=== PATIENT | female | born 1930 | race Caucasian/White ===

== ENCOUNTER 2018-09-04 07:36 | Emergency (ER) | payer MEDICARE ==
[~2018-09-04] VITALS: Ht 167.6 cm; Wt 72.6 kg
[~2018-09-04 07:36] MED LIST: AMLO5 PO; ASPI325 PO; ASPI81EC PO; Adult Low Dose81 MG; Adult Low Dose81 MG PO; CEPH500 PO; EZET10-80 PO; FAMO40 PO; FLUSAL2505 IH; Ferrous Sulfat325 M2 PO; MECL25 PO; METO50ER PO; OMEP20ER PO; Prednisone20 MG PO; Ventolin Soln3 ML INH; Vibramycin100 MG PO; Vitamin B Comple1 EA PO; Vitamin D2000 UNIT PO; WARF4 PO; XARELTO15 MG PO
== END 2018-09-04 08:52 | disposition left against medical advice (07) ==
LOC: ER 07:36
DX: Z53.21 Procedure and treatment not carried out due to patient leaving prior to being seen by health care provider (principal)

== ENCOUNTER 2018-09-06 12:42 | Inpatient (IN) | payer MEDICARE ==
[~2018-09-06] VITALS: Ht 167.6 cm; Wt 72.6 kg
[2018-09-06 13:16] LABS: BASOPHILS ABSOLUTE AUTO 0.03 K/mm3 (0.00-0.23); BASOPHILS PERCENT AUTO 0 % (0-2); EOSINOPHILS PERCENT AUTO 1 % (0-6); Hematocrit 39.1 % (33.0-51.0); IMMATURE GRAN ABSOLUTE AUTO 0.05 K/mm3 (0.00-0.10); IMMATURE GRAN PERCENT AUTO 1 % (0-1); LYMPHOCYTES ABSOLUTE AUTO 0.91 K/mm3 (0.84-5.20); LYMPHOCYTES PERCENT AUTO 9 % (21-46); MONOCYTES ABSOLUTE AUTO 1.09 K/mm3 (0.16-1.47); MONOCYTES PERCENT AUTO 11 % (4-13); Mean Corpuscular HGB 29.4 pg (26.0-34.0); Mean Corpuscular HGB Conc 30.7 g/dL (31.5-36.5); Mean Corpuscular Volume 96 fL (80-100); NEUTROPHILS ABSOLUTE AUTO 8.15 K/mm3 (1.96-9.15); NEUTROPHILS PERCENT AUTO 79 % (41-73); Platelet Count 241 K/mm3 (150-400); RDW Coefficient Variation 14.2 % (11.7-14.2); Red Blood Cell Count 4.08 M/mm3 (3.80-5.20); White Blood Cell Count 10.33 K/mm3 (4.00-11.30)
[2018-09-06 13:30] LABS: Alanine Aminotransfer (ALT/SGP 36 U/L (12-78); Albumin, Blood 3.6 g/dL (3.4-5.0); Albumin/Globulin Ratio 1.2 (0.8-1.8); Alk Phos 96 U/L (50-136); Anion Gap 4 mmol/L (6-16); Aspartate Aminotrans (AST/SGOT 25 U/L (12-37); Bilirubin, Total 0.8 mg/dL (0.1-1.0); Blood Urea Nitrogen 28 mg/dL (8-24); Bun/Creatinine Ratio 28.6 (12.0-20.0); CO2, Blood 32 mmol/L (21-32); Calcium, Blood 8.8 mg/dL (8.5-10.1); Chloride, Blood 105 mmol/L (98-108); Creatinine, Blood 0.98 mg/dL (0.40-1.00); Globulin, Blood 3.1 g/dL (2.2-4.0); Glomerular Filtration Rate 57 (60-); Glucose, Blood 129 mg/dL (70-99); Potassium, Blood 3.6 mmol/L (3.5-5.5); Sodium, Blood 141 mmol/L (136-145); Total Protein, Blood 6.7 g/dL (6.4-8.2); Troponin I <0.015 ng/mL (0.000-0.040)
[2018-09-06] MEDS ORDERED: WARF5 PO (14:59)
[2018-09-06] MEDS ORDERED: POTCHL20ER PO (14:59)
[2018-09-06] MEDS ORDERED: Furosemide20 MG PO (15:10)
[2018-09-06] MEDS ORDERED: Bystolic10 MG PO (15:11)
[2018-09-06] MEDS ORDERED: WARF2.5 PO (15:25)
[2018-09-06] MEDS ORDERED: AMLO5 PO (15:29)
[2018-09-06] MEDS ORDERED: ATOR40TA PO (15:45)
[2018-09-06] MEDS ORDERED: LOSARTAN-HCTZ1 EACH PO (15:47)
[2018-09-06] MEDS ORDERED: ALBU90OI61 INH (15:50)
--- NOTE | 2018-09-06 16:13 | NUR ---
RECIEVED REPORT FROM DHARMESH IN ER.
[2018-09-06 17:26] LABS: International Normalized Ratio 3.07; Prothrombin Time Results 29.4 Sec (9.7-11.5)
--- NOTE | 2018-09-06 18:19 | NUR ---
SHIFT SUMMARY. PT ADMISSION TO MEDICAL FLOOR VIA GURNEY TRANSPORT FROM ER. PT SELF TRANFERED TO BED WITHOUT ISSUE. ON 2L O2 NC. DYSPNEA WITH EXERTION. IV LASIX GIVEN. PT REPORTS TOLERABLE PAIN TO RLE SECONDARY TO WOUND. NO N/V. GOOD PO INTAKE.
--- NOTE | 2018-09-06 18:34 | NUR ---
Pt. gave permission for nursing project coordinator to perform head to toe assessment and to provide care.
[2018-09-07 04:49] LABS: BASOPHILS ABSOLUTE AUTO 0.03 K/mm3 (0.00-0.23); BASOPHILS PERCENT AUTO 0 % (0-2); EOSINOPHILS ABSOLUTE AUTO 0.13 K/mm3 (0.00-0.68); EOSINOPHILS PERCENT AUTO 2 % (0-6); Hematocrit 34.5 % (33.0-51.0); Hemoglobin 10.7 g/dL (11.5-16.0); IMMATURE GRAN ABSOLUTE AUTO 0.04 K/mm3 (0.00-0.10); IMMATURE GRAN PERCENT AUTO 1 % (0-1); LYMPHOCYTES ABSOLUTE AUTO 1.02 K/mm3 (0.84-5.20); LYMPHOCYTES PERCENT AUTO 15 % (21-46); MONOCYTES ABSOLUTE AUTO 1.26 K/mm3 (0.16-1.47); MONOCYTES PERCENT AUTO 18 % (4-13); Mean Corpuscular Volume 94 fL (80-100); Mean Platelet Volume 9.6 fL (9.1-12.4); NEUTROPHILS ABSOLUTE AUTO 4.55 K/mm3 (1.96-9.15); NEUTROPHILS PERCENT AUTO 65 % (41-73); Platelet Count 199 K/mm3 (150-400); RDW Coefficient Variation 14.1 % (11.7-14.2); RDW Standard Deviation 48.6 fL (35.1-46.3); Red Blood Cell Count 3.69 M/mm3 (3.80-5.20); White Blood Cell Count 7.03 K/mm3 (4.00-11.30)
[2018-09-07 05:06] LABS: International Normalized Ratio 2.98; Prothrombin Time Results 28.6 Sec (9.7-11.5)
[2018-09-07 05:07] LABS: Alanine Aminotransfer (ALT/SGP 28 U/L (12-78); Albumin/Globulin Ratio 1.1 (0.8-1.8); Alk Phos 77 U/L (50-136); Anion Gap 5 mmol/L (6-16); Aspartate Aminotrans (AST/SGOT 17 U/L (12-37); Blood Urea Nitrogen 23 mg/dL (8-24); Bun/Creatinine Ratio 25.1 (12.0-20.0); CO2, Blood 33 mmol/L (21-32); Calcium, Blood 8.4 mg/dL (8.5-10.1); Chloride, Blood 104 mmol/L (98-108); Creatinine, Blood 0.92 mg/dL (0.40-1.00); Globulin, Blood 2.7 g/dL (2.2-4.0); Glomerular Filtration Rate >60 (60-); Glucose, Blood 100 mg/dL (70-99); Potassium, Blood 3.6 mmol/L (3.5-5.5); Sodium, Blood 142 mmol/L (136-145); Total Protein, Blood 5.7 g/dL (6.4-8.2)
--- NOTE | 2018-09-07 07:22 | NUR ---
a+o, sob but rt was able to resolve with a breathing treatment, sitting up in bed with o2 on, call light in reach saline locked, walking rounds completed with day staff
--- NOTE | 2018-09-07 19:22 | NUR ---
SHIFT SUMMARY PATIENT A&O X4, INDEP TO BSC. C/O PAIN TO RIGHT LEG THIS SHIFT, RN MEDICATED PER E JUL. O2 @ 2 L NC, PER DR. ELLER ORDERS RN REMOVED O2 AND MONITORED. SATS HAVE REMAINED >90% ON RA. GAUZE WRAP TO ABRASION ON RIGHT STILL. NO ACUTE CHANGES THIS SHIFT. REPORT GIVEN TO ONCOMING RN.
[2018-09-08 05:04] LABS: BASOPHILS ABSOLUTE AUTO 0.02 K/mm3 (0.00-0.23); BASOPHILS PERCENT AUTO 0 % (0-2); EOSINOPHILS ABSOLUTE AUTO 0.17 K/mm3 (0.00-0.68); EOSINOPHILS PERCENT AUTO 3 % (0-6); Hematocrit 38.1 % (33.0-51.0); Hemoglobin 11.8 g/dL (11.5-16.0); IMMATURE GRAN ABSOLUTE AUTO 0.02 K/mm3 (0.00-0.10); IMMATURE GRAN PERCENT AUTO 0 % (0-1); LYMPHOCYTES ABSOLUTE AUTO 0.79 K/mm3 (0.84-5.20); LYMPHOCYTES PERCENT AUTO 16 % (21-46); MONOCYTES ABSOLUTE AUTO 0.96 K/mm3 (0.16-1.47); MONOCYTES PERCENT AUTO 19 % (4-13); Mean Corpuscular Volume 94 fL (80-100); Mean Platelet Volume 9.8 fL (9.1-12.4); NEUTROPHILS ABSOLUTE AUTO 3.11 K/mm3 (1.96-9.15); NEUTROPHILS PERCENT AUTO 61 % (41-73); Platelet Count 212 K/mm3 (150-400); RDW Coefficient Variation 14.1 % (11.7-14.2); RDW Standard Deviation 47.4 fL (35.1-46.3); Red Blood Cell Count 4.07 M/mm3 (3.80-5.20); White Blood Cell Count 5.07 K/mm3 (4.00-11.30)
--- NOTE | 2018-09-08 05:11 | NUR ---
SHIFT SUMMARY PT REPORTS SHE SLEPT WELL T/O NIGHT. AOX4. DENIES ANY PAIN, NAUSEA OR SOB @REST. SPO2 WAS @88-89% ON RA LAST NIGHT SO PT WAS PUT BACK ON 2L O2 VIA NC, SPO2 THIS AM @92% W/EVEN & UNLABOURED RESPIRATIONS. TELE IN PLACE, PT IS A. FIB W/HR 87 PER TELE FIXED INCOME TRADING VICE PRESIDENT. NO OTHER ACUTE CHANGES. INDEPENDENT TO BSC. CALL LIGHT IN REACH & I WILL CONTINUE TO MONITOR.
[2018-09-08 05:21] LABS: International Normalized Ratio 3.28; Prothrombin Time Results 31.2 Sec (9.7-11.5)
[2018-09-08 05:32] LABS: Bilirubin, Total 0.9 mg/dL (0.1-1.0); Bun/Creatinine Ratio 29.9 (12.0-20.0); Calcium, Blood 8.5 mg/dL (8.5-10.1); Creatinine, Blood 1.07 mg/dL (0.40-1.00); Globulin, Blood 2.9 g/dL (2.2-4.0); Magnesium, Blood 2.1 mg/dL (1.6-2.4); Potassium, Blood 3.7 mmol/L (3.5-5.5); Total Protein, Blood 5.9 g/dL (6.4-8.2)
--- NOTE | 2018-09-08 18:50 | NUR ---
SHIFT SUMMARY PATIENT A&O X4, INDEP TO BSC. DENIES ANY SOB OR PAIN. TELE AFIB @ 120. RUNNING BETWEEN ONE TEENS AND 130S THIS SHIFT. DR. ELLER AWARE. HOME O2 EVAL DONE TODAY. NO OTHER ACUTE CHANGES. BED IN LOWEST POSITION, CALL LIGHT WITHIN REACH.
[2018-09-09 05:17] LABS: BASOPHILS ABSOLUTE AUTO 0.03 K/mm3 (0.00-0.23); BASOPHILS PERCENT AUTO 0 % (0-2); EOSINOPHILS PERCENT AUTO 2 % (0-6); IMMATURE GRAN ABSOLUTE AUTO 0.06 K/mm3 (0.00-0.10); IMMATURE GRAN PERCENT AUTO 1 % (0-1); LYMPHOCYTES ABSOLUTE AUTO 0.94 K/mm3 (0.84-5.20); LYMPHOCYTES PERCENT AUTO 9 % (21-46); MONOCYTES ABSOLUTE AUTO 1.61 K/mm3 (0.16-1.47); MONOCYTES PERCENT AUTO 15 % (4-13); Mean Corpuscular HGB Conc 31.6 g/dL (31.5-36.5); Mean Corpuscular Volume 92 fL (80-100); NEUTROPHILS ABSOLUTE AUTO 8.24 K/mm3 (1.96-9.15); NEUTROPHILS PERCENT AUTO 74 % (41-73); Platelet Count 243 K/mm3 (150-400); RDW Standard Deviation 46.9 fL (35.1-46.3); Red Blood Cell Count 4.14 M/mm3 (3.80-5.20); White Blood Cell Count 11.08 K/mm3 (4.00-11.30)
[2018-09-09 05:32] LABS: International Normalized Ratio 2.5; Prothrombin Time Results 24.4 Sec (9.7-11.5)
[2018-09-09 05:41] LABS: Anion Gap 6 mmol/L (6-16); Blood Urea Nitrogen 27 mg/dL (8-24); Bun/Creatinine Ratio 31.1 (12.0-20.0); CO2, Blood 29 mmol/L (21-32); Chloride, Blood 105 mmol/L (98-108); Creatinine, Blood 0.87 mg/dL (0.40-1.00); Glomerular Filtration Rate >60 (60-); Glucose, Blood 113 mg/dL (70-99); Potassium, Blood 3.9 mmol/L (3.5-5.5); Sodium, Blood 140 mmol/L (136-145)
--- NOTE | 2018-09-09 06:49 | NUR ---
SHIFT SUMMARY PT HAS BEEN AWAKE ON/OFF T/O NIGHT & REPORTS SHE DID NOT SLEEP @ALL, HOWEVER WHEN I CHECKED ON PT MULTIPLE TIMES T/O NIGHT SHE WAS RESTING. NO ACUTE CHANGES THIS SHIFT. AOX4. DENIES PAIN OR NAUSEA OR SOB. PT HAS BEEN ON RA T/O NIGHT W/SPO2 >90%. REPORTS SHE FEELS HER BREATHING IS BETTER. PER TELE SHUTTLE FIXER PT HAS BEEN IN A. FIB W/ HR 110-120. INDEPENDENT TO BSC. HAS TOLERATED BEING ON 1500ML FLUID RESTRICTION. CALL LIGHT IS IN REACH.
[2018-09-09] MEDS ORDERED: METO50ER PO (17:36)
[2018-09-09] MEDS ORDERED: LOSA50 PO (17:41)
[2018-09-09] MEDS ORDERED: SPIR25 PO (17:41)
--- NOTE | 2018-09-09 19:23 | NUR ---
DISCHARGE SUMMARY PATIENT A&O X4, INDEPENDENT TO BSC. RA SATS >90%. TELE LOW 100S -120S THIS SHIFT. DENIES ANY PAIN. SOB W/EXERTION. BREATHING TREATMENTS PER RT PRN. DISCHARGE INSTRUCTIONS REVIEWED WITH PATIENT. PATIENT GAVE VERBAL UNDERSTANDING. IV D/C, WNL. LICENSED WEIGHER ESCORTED PATIENT OUT BY WHEELCHAIR, ALL BELONGINGS IN HAND.
== END 2018-09-09 18:43 | disposition home or self-care (01) | DRG 291 ==
LOC: ER 12:42 → MEDS 15:12 → ENPENDDIS 09-09 16:25 → MEDS 09-09 18:43
PROVIDERS: Emergency Medicine; Hospitalist; ADMIT Student in an Organized Health Care Education/Training Program
DX: I13.0 Hypertensive heart and chronic kidney disease with heart failure and stage 1 through stage 4 chronic kidney disease, or unspecified chronic kidney disease (principal); I50.33 Acute on chronic diastolic (congestive) heart failure; N18.3 Chronic kidney disease, stage 3 (moderate); I25.10 Atherosclerotic heart disease of native coronary artery without angina pectoris; J44.9 Chronic obstructive pulmonary disease, unspecified; R73.03 Prediabetes; Z95.5 Presence of coronary angioplasty implant and graft; Z79.01 Long term (current) use of anticoagulants; I35.0 Nonrheumatic aortic (valve) stenosis; Z87.891 Personal history of nicotine dependence; I44.0 Atrioventricular block, first degree; I48.2 Chronic atrial fibrillation
CPT/HCPCS: 36415; 71046; 80048; 80053; 83735; 83880; 84145; 84484; 85025; 85610; 85730; 93005; 93010; 94640; 94760; 94761; 99285-25; J1940

== ENCOUNTER 2018-10-06 11:57 | Day surgery (SDC) | payer MEDICARE ==
[~2018-10-06 11:57] MED LIST changes: +ALBU90OI61 INH; +ATOR40TA PO; +Bystolic10 MG PO; +Furosemide20 MG PO; +LOSA50 PO; +LOSARTAN-HCTZ1 EACH PO; +POTCHL20ER PO; +SPIR25 PO; +WARF2.5 PO; +WARF5 PO
== END 2018-10-06 22:46 | disposition home or self-care (01) ==
LOC: WOUND 11:57
DX: L97.812 Non-pressure chronic ulcer of other part of right lower leg with fat layer exposed (principal); I10 Essential (primary) hypertension; I25.10 Atherosclerotic heart disease of native coronary artery without angina pectoris; I48.91 Unspecified atrial fibrillation; J44.9 Chronic obstructive pulmonary disease, unspecified; E78.5 Hyperlipidemia, unspecified; D64.9 Anemia, unspecified; Z87.891 Personal history of nicotine dependence
CPT/HCPCS: G0463

== ENCOUNTER 2018-10-13 00:57 | Day surgery (SDC) | payer MEDICARE | END 2018-10-13 23:20 | disposition home or self-care (01) | LOC: WOUND 00:57 | DX: L97.813 Non-pressure chronic ulcer of other part of right lower leg with necrosis of muscle (principal); I10 Essential (primary) hypertension; E78.5 Hyperlipidemia, unspecified; J44.9 Chronic obstructive pulmonary disease, unspecified; I25.10 Atherosclerotic heart disease of native coronary artery without angina pectoris ==

== ENCOUNTER 2018-10-20 00:25 | Day surgery (SDC) | payer MEDICARE | END 2018-10-20 23:13 | disposition home or self-care (01) | LOC: WOUND 00:25 | DX: L97.813 Non-pressure chronic ulcer of other part of right lower leg with necrosis of muscle (principal); I10 Essential (primary) hypertension; J44.9 Chronic obstructive pulmonary disease, unspecified; I25.10 Atherosclerotic heart disease of native coronary artery without angina pectoris ==

== ENCOUNTER 2018-10-24 07:44 | Day surgery (SDC) | payer MEDICARE ==
[~2018-10-24] VITALS: Wt 70.0 kg
[~2018-10-24 07:44] MED LIST changes: +LOSA25 PO; -LOSA50 PO
--- NOTE | 2018-10-24 09:01 | NUR ---
0818 Ambulatory in Day SurgeryLungs clear T/O to Auscultation. DIM BASES BILAT Patient confirms NPO status and agrees with scheduled surgery. History, Chart, Medications and Allergies reviewed before start of procedure.Pre-Op teaching done. Pt verbalizes understanding.
--- NOTE | 2018-10-24 10:50 | NUR ---
Patient up to Ambulate independently. Gait steady. Discharge instructions reviewed with patient. Patient verbalizes understanding. Copy given to patient to take home. Discussed wound vac care to patient and patients son. Patient States Post-Procedure ride home has been arranged. Discharged via wheelchair to private car for ride home.
== END 2018-10-24 10:49 | disposition home or self-care (01) ==
LOC: ORSCMMR 07:44
PROVIDERS: Surgery
PROC: 0JBN0ZZ Excision of Right Lower Leg Subcutaneous Tissue and Fascia, Open Approach (ICD-10-PCS; principal; 2018-10-24 09:30)
DX: L97.919 Non-pressure chronic ulcer of unspecified part of right lower leg with unspecified severity (principal); I34.0 Nonrheumatic mitral (valve) insufficiency; I35.0 Nonrheumatic aortic (valve) stenosis; E78.5 Hyperlipidemia, unspecified; I25.10 Atherosclerotic heart disease of native coronary artery without angina pectoris; I10 Essential (primary) hypertension; J44.9 Chronic obstructive pulmonary disease, unspecified; Z79.82 Long term (current) use of aspirin; Z79.899 Other long term (current) drug therapy
CPT/HCPCS: 36415; 85610; 93005; 93010; 99283-25; A9270-GY; J0690; J1100; J2370; J2405; J2704; J3010; J7120

== ENCOUNTER 2018-10-24 17:58 | Emergency (ER) | payer MEDICARE ==
[~2018-10-24] VITALS: Ht 167.6 cm; Wt 69.8 kg
[~2018-10-24 17:58] MED LIST changes: -LOSA25 PO; +LOSA50 PO
[2018-10-24 18:54] LABS: International Normalized Ratio 1.23; Prothrombin Time Results 12.8 Sec (9.7-11.5)
== END 2018-10-24 20:00 | disposition home or self-care (01) ==
LOC: ER 17:58
PROVIDERS: Physician Assistant
DX: L97.919 Non-pressure chronic ulcer of unspecified part of right lower leg with unspecified severity (principal); I48.91 Unspecified atrial fibrillation; Z79.899 Other long term (current) drug therapy; Z79.82 Long term (current) use of aspirin; Z79.01 Long term (current) use of anticoagulants; J44.9 Chronic obstructive pulmonary disease, unspecified; I10 Essential (primary) hypertension; Z87.891 Personal history of nicotine dependence
CPT/HCPCS: 36415; 85610; 93005; 93010; 99283-25

== ENCOUNTER 2018-10-25 11:08 | Day surgery (SDC) | payer MEDICARE | END 2018-10-25 23:00 | disposition home or self-care (01) | LOC: WOUND 11:08 | DX: L97.813 Non-pressure chronic ulcer of other part of right lower leg with necrosis of muscle (principal); I10 Essential (primary) hypertension; I25.10 Atherosclerotic heart disease of native coronary artery without angina pectoris; I48.0 Paroxysmal atrial fibrillation; J44.9 Chronic obstructive pulmonary disease, unspecified; D64.9 Anemia, unspecified; E78.5 Hyperlipidemia, unspecified ==

== ENCOUNTER 2018-10-26 12:25 | Day surgery (SDC) | payer MEDICARE, OTHER ==
[~2018-10-26 12:25] MED LIST changes: +LOSA25 PO; -LOSA50 PO
== END 2018-10-26 22:53 | disposition home or self-care (01) ==
LOC: WOUND 12:25
DX: L97.813 Non-pressure chronic ulcer of other part of right lower leg with necrosis of muscle (principal); I10 Essential (primary) hypertension; J44.9 Chronic obstructive pulmonary disease, unspecified; E78.5 Hyperlipidemia, unspecified; I25.10 Atherosclerotic heart disease of native coronary artery without angina pectoris

== ENCOUNTER 2018-10-31 11:29 | Day surgery (SDC) | payer MEDICARE | END 2018-10-31 22:41 | disposition home or self-care (01) | LOC: WOUND 11:29 | DX: L97.314 Non-pressure chronic ulcer of right ankle with necrosis of bone (principal); I10 Essential (primary) hypertension; I25.10 Atherosclerotic heart disease of native coronary artery without angina pectoris; J44.9 Chronic obstructive pulmonary disease, unspecified; D64.9 Anemia, unspecified | CPT/HCPCS: G0463 ==

== ENCOUNTER 2018-11-02 12:30 | Day surgery (SDC) | payer MEDICARE, SELFPAY | END 2018-11-02 23:10 | disposition home or self-care (01) | LOC: WOUND 12:30 | DX: L97.813 Non-pressure chronic ulcer of other part of right lower leg with necrosis of muscle (principal); I10 Essential (primary) hypertension; I25.10 Atherosclerotic heart disease of native coronary artery without angina pectoris; J44.9 Chronic obstructive pulmonary disease, unspecified; I48.0 Paroxysmal atrial fibrillation; E78.5 Hyperlipidemia, unspecified; D64.9 Anemia, unspecified ==

== ENCOUNTER 2018-11-04 15:03 | Day surgery (SDC) | payer MEDICARE | END 2018-11-04 23:05 | disposition home or self-care (01) | LOC: WOUND 15:03 | DX: L97.813 Non-pressure chronic ulcer of other part of right lower leg with necrosis of muscle (principal); I10 Essential (primary) hypertension; I48.0 Paroxysmal atrial fibrillation; I25.10 Atherosclerotic heart disease of native coronary artery without angina pectoris; J44.9 Chronic obstructive pulmonary disease, unspecified; E78.5 Hyperlipidemia, unspecified; D64.9 Anemia, unspecified | CPT/HCPCS: G0463 ==

== ENCOUNTER 2018-11-11 07:48 | Day surgery (SDC) | payer MEDICARE | END 2018-11-11 23:23 | disposition home or self-care (01) | LOC: WOUND 07:48 | DX: L97.813 Non-pressure chronic ulcer of other part of right lower leg with necrosis of muscle (principal); I10 Essential (primary) hypertension; J44.9 Chronic obstructive pulmonary disease, unspecified; E78.5 Hyperlipidemia, unspecified; I25.10 Atherosclerotic heart disease of native coronary artery without angina pectoris | CPT/HCPCS: G0463 ==

== ENCOUNTER 2018-11-14 11:05 | Day surgery (SDC) | payer MEDICARE | END 2018-11-14 22:40 | disposition home or self-care (01) | LOC: WOUND 11:05 | DX: L97.813 Non-pressure chronic ulcer of other part of right lower leg with necrosis of muscle (principal); I10 Essential (primary) hypertension; J44.9 Chronic obstructive pulmonary disease, unspecified; E78.5 Hyperlipidemia, unspecified; I25.10 Atherosclerotic heart disease of native coronary artery without angina pectoris ==

== ENCOUNTER 2018-11-18 16:10 | Inpatient (IN) | payer MEDICARE, OTHER ==
[~2018-11-18] VITALS: Ht 167.6 cm; Wt 67.0 kg
[2018-11-18 16:42] LABS: BASOPHILS ABSOLUTE AUTO 0.02 K/mm3 (0.00-0.23); BASOPHILS PERCENT AUTO 1 % (0-2); EOSINOPHILS ABSOLUTE AUTO 0.06 K/mm3 (0.00-0.68); EOSINOPHILS PERCENT AUTO 1 % (0-6); Hematocrit 46.1 % (33.0-51.0); Hemoglobin 14.6 g/dL (11.5-16.0); IMMATURE GRAN ABSOLUTE AUTO 0.02 K/mm3 (0.00-0.10); IMMATURE GRAN PERCENT AUTO 1 % (0-1); LYMPHOCYTES ABSOLUTE AUTO 0.92 K/mm3 (0.84-5.20); LYMPHOCYTES PERCENT AUTO 22 % (21-46); MONOCYTES ABSOLUTE AUTO 0.91 K/mm3 (0.16-1.47); MONOCYTES PERCENT AUTO 22 % (4-13); Mean Corpuscular HGB Conc 31.7 g/dL (31.5-36.5); Mean Corpuscular Volume 92 fL (80-100); Mean Platelet Volume 9.9 fL (9.1-12.4); NEUTROPHILS ABSOLUTE AUTO 2.31 K/mm3 (1.96-9.15); NEUTROPHILS PERCENT AUTO 54 % (41-73); Platelet Count 276 K/mm3 (150-400); RDW Coefficient Variation 14.4 % (11.7-14.2); RDW Standard Deviation 48.2 fL (35.1-46.3); Red Blood Cell Count 5.04 M/mm3 (3.80-5.20); White Blood Cell Count 4.24 K/mm3 (4.00-11.30)
[2018-11-18 16:54] LABS: Albumin, Blood 3.6 g/dL (3.4-5.0); Albumin/Globulin Ratio 1.1 (0.8-1.8); Bilirubin, Total 0.6 mg/dL (0.1-1.0); Bun/Creatinine Ratio 34.2 (12.0-20.0); Calcium, Blood 8.7 mg/dL (8.5-10.1); Creatinine, Blood 1.46 mg/dL (0.40-1.00); Globulin, Blood 3.2 g/dL (2.2-4.0); Potassium, Blood 4.6 mmol/L (3.5-5.5); Total Protein, Blood 6.8 g/dL (6.4-8.2)
[2018-11-18] MEDS ORDERED: ATOR40TA PO (17:53)
[2018-11-18 19:24] LABS: Hematocrit 44.8 % (33.0-51.0); Hemoglobin 14.4 g/dL (11.5-16.0)
[2018-11-19 01:55] LABS: Hematocrit 44.3 % (33.0-51.0); Hemoglobin 14.1 g/dL (11.5-16.0)
[2018-11-19 01:59] LABS: BASOPHILS ABSOLUTE AUTO 0.01 K/mm3 (0.00-0.23); BASOPHILS PERCENT AUTO 0 % (0-2); EOSINOPHILS ABSOLUTE AUTO 0.11 K/mm3 (0.00-0.68); EOSINOPHILS PERCENT AUTO 3 % (0-6); Hematocrit 44.2 % (33.0-51.0); Hemoglobin 14.1 g/dL (11.5-16.0); IMMATURE GRAN ABSOLUTE AUTO 0.01 K/mm3 (0.00-0.10); IMMATURE GRAN PERCENT AUTO 0 % (0-1); LYMPHOCYTES ABSOLUTE AUTO 1.35 K/mm3 (0.84-5.20); LYMPHOCYTES PERCENT AUTO 35 % (21-46); MONOCYTES ABSOLUTE AUTO 0.81 K/mm3 (0.16-1.47); MONOCYTES PERCENT AUTO 21 % (4-13); Mean Corpuscular HGB Conc 31.9 g/dL (31.5-36.5); Mean Corpuscular Volume 91 fL (80-100); Mean Platelet Volume 9.6 fL (9.1-12.4); NEUTROPHILS ABSOLUTE AUTO 1.59 K/mm3 (1.96-9.15); NEUTROPHILS PERCENT AUTO 41 % (41-73); Platelet Count 197 K/mm3 (150-400); RDW Coefficient Variation 14.1 % (11.7-14.2); RDW Standard Deviation 47.5 fL (35.1-46.3); Red Blood Cell Count 4.86 M/mm3 (3.80-5.20); White Blood Cell Count 3.88 K/mm3 (4.00-11.30)
[2018-11-19 02:10] LABS: International Normalized Ratio 1.56; Prothrombin Time Results 15.9 Sec (9.7-11.5)
[2018-11-19 02:13] LABS: Bun/Creatinine Ratio 39.1 (12.0-20.0); Calcium, Blood 8.4 mg/dL (8.5-10.1); Creatinine, Blood 1.1 mg/dL (0.40-1.00)
[2018-11-19 07:31] LABS: Hematocrit 43.8 % (33.0-51.0); Hemoglobin 14.1 g/dL (11.5-16.0)
--- NOTE | 2018-11-19 07:40 | NUR ---
ADMIT NOTE/SHIFT SUMMARY PATIENT ADMITTED EARLIER LAST NIGHT. PATIENT VERY PLEASENT AND COOPERATIVE LAST NIGHT. PATIENT ABLE TO TRANSFER SELF FROM THE GURNEY TO THE BED WITH SBA. PATIENT REPROTS SHE HAS BEEN FEELING DIZZY THE PAST COUPLE OF DAYS AND SHE STATES SHE HAD A "BLACK" BM ON 11/17. PATIENT APPARED TO SLEEP WELL LAST NIGHT. PATIENT STATED, "I SLEPT SO WELL LAST NIGHT!" IV FLUIDS RUNNING PER ORDERS. PATIENT CURRENTLY RESTING IN BED. REPORT GIVEN TO ONCOMING RN.
--- NOTE | 2018-11-19 10:57 | NUR ---
DR PAT AT BEDSIDE, NEW ORDERS FOR REGULAR DIET AND CONTINUE TO MONITOR. IF NO CHANGES OK TO SEND HOME.
--- NOTE | 2018-11-19 11:24 | NUR ---
NOTIFIED DR AGUSTIN OF DR PAT VISIT AND PLANS VIA TELE PHONE, NEW ORDERS FOR TRANSFER TO MEDICAL FLOOR NO TELE AND CBC IN AM. WILL CONTINUE TO MONITOR.
--- NOTE | 2018-11-19 13:45 | NUR ---
TRANSFER NOTE ASSUMED CARE OF PATIENT THIS AM AT APPROX 0700. PT A&Ox4. CALM AND COOPERTIVE WITH CARE. PT RESTING IN BED, UP TO BATHROOM WITH SBA. PT DENIES SOB, PAIN, DIZZINESS AND LIGHTHEADED NESS AND N/V. PT NPO THIS AM, STARTED ON REGULAR TRAY FOR LUNCH, APPEARS TO TOLERATING. NO BM NOTED SINCE ADMISSION. TELE IN AFIB. BREAHTING EVEN AND UNLABORED. WOUND VAC TO RLE DRESSING C/D/I. VSS. NO OTHER ACUTE CHANGES NOTED DURIING SHIFT. REPORT GIVEN TO GABRIEL HERRERA RN, PT BEING TRANSFERED TO MED ROOM 335.
[2018-11-19 14:01] LABS: Hematocrit 44.8 % (33.0-51.0); Hemoglobin 13.9 g/dL (11.5-16.0)
--- NOTE | 2018-11-19 15:14 | NUR ---
RECEIVED HANDOFF REPORT RECEIVED HANDOFF REPORT FROM PCU NURSE POLLO. 88 YR OLD FEMALE ADMITTED FOR GI BLEED. FULL CODE. REGULAR DIET. PRE-DIABETIC, ACHS CHEMSTICKS. PLAN IS FOR DC TOMORROW IF LABS ARE STABLE. HX: AFIB, COUMADIN THERAPY, RLE ULCER (WOUND VAC ATTACHED ON 10/24/18), HTN, COPD, CAD (3 STENTS), CKD3. A&O X4, ROOM AIR, STANDBY ASSIST, MEDS WHOLE W/WATER. PT TRANSFERED TO MEDICAL FLOOR [facility], ORIENTED TO UNIT @ 1356 HRS.
--- NOTE | 2018-11-19 18:22 | NUR ---
SHIFT SUMMARY PT TRANSFERED FROM PCU TODAY. 88 YR OLD FEMALE ADMITTED FOR GI BLEED. FULL CODE. REGULAR DIET, ACHS, A&O X4. STANDBY ASSIST TO BATHROOM. WAS ON COUMADIN AT HOME AND ADMITTED WITH INR OF 7.3. HX: AFIB, CHF, RIGHT LE ULCER W/WOUND VAC, CAD W/3 STENTS, CKD3.
[2018-11-20 05:04] LABS: BASOPHILS ABSOLUTE AUTO 0.01 K/mm3 (0.00-0.23); BASOPHILS PERCENT AUTO 0 % (0-2); EOSINOPHILS ABSOLUTE AUTO 0.09 K/mm3 (0.00-0.68); EOSINOPHILS PERCENT AUTO 2 % (0-6); Hematocrit 44.3 % (33.0-51.0); Hemoglobin 13.9 g/dL (11.5-16.0); Mean Corpuscular HGB 28.4 pg (26.0-34.0); Mean Corpuscular HGB Conc 31.4 g/dL (31.5-36.5); Mean Corpuscular Volume 91 fL (80-100); Mean Platelet Volume 9.7 fL (9.1-12.4); Platelet Count 201 K/mm3 (150-400); RDW Coefficient Variation 14.3 % (11.7-14.2); RDW Standard Deviation 47.8 fL (35.1-46.3); Red Blood Cell Count 4.89 M/mm3 (3.80-5.20); White Blood Cell Count 4.12 K/mm3 (4.00-11.30)
[2018-11-20 05:07] LABS: IMMATURE GRAN ABSOLUTE AUTO 0.02 K/mm3 (0.00-0.10); IMMATURE GRAN PERCENT AUTO 1 % (0-1); LYMPHOCYTES ABSOLUTE AUTO 1.34 K/mm3 (0.84-5.20); LYMPHOCYTES PERCENT AUTO 33 % (21-46); MONOCYTES ABSOLUTE AUTO 0.69 K/mm3 (0.16-1.47); MONOCYTES PERCENT AUTO 17 % (4-13); NEUTROPHILS ABSOLUTE AUTO 1.97 K/mm3 (1.96-9.15); NEUTROPHILS PERCENT AUTO 48 % (41-73)
--- NOTE | 2018-11-20 06:43 | NUR ---
wound vac draining but complained all night that it was blocked, tried various "solutions" even asked advise of cn, passed information to day staff during bsr, saline locked, room air, blood work down only slightly
[2018-11-20] MEDS ORDERED: Prilosec Otc20 MG PO (10:23)
--- NOTE | 2018-11-20 11:18 | NUR ---
DISCHARGE NOTE IV DC'D WNL. HOSPITAL WOUND VAC DISCONNECTED. HOME WOUND VAC GIVEN BACK TO THE PT. DISCHARGE MEDICATIONS FAXED TO PREFERED PHARMACY. PT PROVIDED WITH HARDCOPY AND VERBAL INSTRUCTIONS FOR DISCHARGE RE: DIAGNOSES, MEDICATIONS, AND FOLLOW UP APPOINTMENTS. PT DRESSED IN PERSONAL CLOTHING, PERSONAL POSSESSIONS GIVEN TO PT. PT HAD NO FURTHER QUESTIONS. FAMILY NOTIFIED OF DISCHARGE. PT ESCORTED OUT VIA WHEELCHAIR TO PERSONAL VEHICLE.
== END 2018-11-20 11:11 | disposition home health service (06) | DRG 378 ==
LOC: ER 16:10 → PCU 17:17 → MEDS 11-19 13:56 → ENPENDDIS 11-20 09:12 → MEDS 11-20 11:11
PROVIDERS: Emergency Medicine; Internal Medicine; ADMIT Internal Medicine
DX: K92.2 Gastrointestinal hemorrhage, unspecified (principal); I13.0 Hypertensive heart and chronic kidney disease with heart failure and stage 1 through stage 4 chronic kidney disease, or unspecified chronic kidney disease; I50.32 Chronic diastolic (congestive) heart failure; N17.9 Acute kidney failure, unspecified; I25.10 Atherosclerotic heart disease of native coronary artery without angina pectoris; J44.9 Chronic obstructive pulmonary disease, unspecified; I95.9 Hypotension, unspecified; Z79.01 Long term (current) use of anticoagulants; I48.2 Chronic atrial fibrillation; Z95.5 Presence of coronary angioplasty implant and graft; N18.3 Chronic kidney disease, stage 3 (moderate); I08.0 Rheumatic disorders of both mitral and aortic valves; Z87.898 Personal history of other specified conditions; Z79.82 Long term (current) use of aspirin; Z87.891 Personal history of nicotine dependence; S81.801D Unspecified open wound, right lower leg, subsequent encounter
CPT/HCPCS: 36415; 80048; 80053; 82272; 82947; 85014; 85018; 85025; 85610; 86850; 86900; 86901; 93005; 93010; 94640; 94760; 96365; 96375; 97161; 97165; 97530; 99285-25; C9113; J3430; J7030

== ENCOUNTER 2018-11-23 13:15 | Day surgery (SDC) | payer MEDICARE ==
[~2018-11-23 13:15] MED LIST changes: +Prilosec Otc20 MG PO
== END 2018-11-23 23:38 | disposition home or self-care (01) ==
LOC: WOUND 13:15
DX: L97.812 Non-pressure chronic ulcer of other part of right lower leg with fat layer exposed (principal); I10 Essential (primary) hypertension; J44.9 Chronic obstructive pulmonary disease, unspecified; E78.5 Hyperlipidemia, unspecified; I83.90 Asymptomatic varicose veins of unspecified lower extremity; I48.0 Paroxysmal atrial fibrillation; I25.10 Atherosclerotic heart disease of native coronary artery without angina pectoris; C44.41 Basal cell carcinoma of skin of scalp and neck; L57.0 Actinic keratosis; I34.0 Nonrheumatic mitral (valve) insufficiency; I35.0 Nonrheumatic aortic (valve) stenosis; Z48.00 Encounter for change or removal of nonsurgical wound dressing; Z95.5 Presence of coronary angioplasty implant and graft
CPT/HCPCS: G0463

== ENCOUNTER 2018-11-30 13:23 | Day surgery (SDC) | payer MEDICARE, OTHER | END 2018-11-30 23:00 | disposition home or self-care (01) | LOC: WOUND 13:23 | DX: L97.812 Non-pressure chronic ulcer of other part of right lower leg with fat layer exposed (principal); I10 Essential (primary) hypertension; I48.0 Paroxysmal atrial fibrillation; I25.10 Atherosclerotic heart disease of native coronary artery without angina pectoris; J44.9 Chronic obstructive pulmonary disease, unspecified; E78.5 Hyperlipidemia, unspecified; D64.9 Anemia, unspecified ==

== ENCOUNTER 2018-12-02 00:56 | Day surgery (SDC) | payer MEDICARE, OTHER | END 2018-12-03 00:05 | disposition home or self-care (01) | LOC: WOUND 00:56 | DX: L97.812 Non-pressure chronic ulcer of other part of right lower leg with fat layer exposed (principal); I10 Essential (primary) hypertension; I48.0 Paroxysmal atrial fibrillation; I25.10 Atherosclerotic heart disease of native coronary artery without angina pectoris; J44.9 Chronic obstructive pulmonary disease, unspecified; E78.5 Hyperlipidemia, unspecified; D64.9 Anemia, unspecified ==

== ENCOUNTER 2018-12-09 01:19 | Day surgery (SDC) | payer MEDICARE, SELFPAY | END 2018-12-09 23:45 | disposition home or self-care (01) | LOC: WOUND 01:19 | PROC: 0HDKXZZ Extraction of Right Lower Leg Skin, External Approach (ICD-10-PCS; principal; 2018-12-09) | DX: L97.812 Non-pressure chronic ulcer of other part of right lower leg with fat layer exposed (principal); J44.9 Chronic obstructive pulmonary disease, unspecified; I10 Essential (primary) hypertension; E78.5 Hyperlipidemia, unspecified; I48.0 Paroxysmal atrial fibrillation; I25.10 Atherosclerotic heart disease of native coronary artery without angina pectoris; C44.41 Basal cell carcinoma of skin of scalp and neck; I34.0 Nonrheumatic mitral (valve) insufficiency; I35.0 Nonrheumatic aortic (valve) stenosis; I83.90 Asymptomatic varicose veins of unspecified lower extremity ==

== ENCOUNTER 2018-12-16 02:42 | Day surgery (SDC) | payer MEDICARE, OTHER | END 2018-12-16 23:08 | disposition home or self-care (01) | LOC: WOUND | DX: L97.813 Non-pressure chronic ulcer of other part of right lower leg with necrosis of muscle (principal); I10 Essential (primary) hypertension ==

== ENCOUNTER 2018-12-23 02:20 | Day surgery (SDC) | payer MEDICARE | END 2018-12-23 23:25 | disposition home or self-care (01) | LOC: WOUND | DX: L97.813 Non-pressure chronic ulcer of other part of right lower leg with necrosis of muscle (principal); I10 Essential (primary) hypertension; I48.0 Paroxysmal atrial fibrillation; I25.10 Atherosclerotic heart disease of native coronary artery without angina pectoris; J44.9 Chronic obstructive pulmonary disease, unspecified; E78.5 Hyperlipidemia, unspecified ==

== ENCOUNTER 2018-12-28 00:30 | Day surgery (SDC) | payer MEDICARE | END 2018-12-28 22:48 | disposition home or self-care (01) | LOC: WOUND | DX: L97.813 Non-pressure chronic ulcer of other part of right lower leg with necrosis of muscle (principal); I10 Essential (primary) hypertension; J44.9 Chronic obstructive pulmonary disease, unspecified; E78.5 Hyperlipidemia, unspecified; I25.10 Atherosclerotic heart disease of native coronary artery without angina pectoris ==

== ENCOUNTER 2019-01-06 02:05 | Day surgery (SDC) | payer MEDICARE, OTHER | END 2019-01-07 00:18 | disposition home or self-care (01) | LOC: WOUND | DX: L97.813 Non-pressure chronic ulcer of other part of right lower leg with necrosis of muscle (principal); I10 Essential (primary) hypertension; E78.5 Hyperlipidemia, unspecified; J44.9 Chronic obstructive pulmonary disease, unspecified; I25.10 Atherosclerotic heart disease of native coronary artery without angina pectoris ==

== ENCOUNTER 2019-01-13 10:11 | Day surgery (SDC) | payer MEDICARE, OTHER | END 2019-01-13 23:10 | disposition home or self-care (01) | LOC: WOUND | DX: L97.813 Non-pressure chronic ulcer of other part of right lower leg with necrosis of muscle (principal); I10 Essential (primary) hypertension; E78.5 Hyperlipidemia, unspecified; J44.9 Chronic obstructive pulmonary disease, unspecified ==

== ENCOUNTER 2019-01-17 00:22 | Day surgery (SDC) | payer MEDICARE, OTHER | END 2019-01-17 23:08 | disposition home or self-care (01) | LOC: WOUND | DX: L97.813 Non-pressure chronic ulcer of other part of right lower leg with necrosis of muscle (principal); I10 Essential (primary) hypertension; K44.9 Diaphragmatic hernia without obstruction or gangrene; E78.5 Hyperlipidemia, unspecified; I25.10 Atherosclerotic heart disease of native coronary artery without angina pectoris ==

== ENCOUNTER 2019-01-27 02:27 | Day surgery (SDC) | payer MEDICARE, OTHER | END 2019-01-27 22:44 | disposition home or self-care (01) | LOC: WOUND | DX: L97.813 Non-pressure chronic ulcer of other part of right lower leg with necrosis of muscle (principal); I10 Essential (primary) hypertension; I25.10 Atherosclerotic heart disease of native coronary artery without angina pectoris; I48.0 Paroxysmal atrial fibrillation | CPT/HCPCS: G0463 ==

== ENCOUNTER → 2019-04-22 | Outpatient (CLI) | payer MEDICARE, OTHER ==
[~2019-04-22] MED LIST changes: +ELIQUIS5 M2 PO; +FURO40 PO
[2019-04-22 11:26] LABS: BASOPHILS ABSOLUTE AUTO 0.03 K/mm3 (0.00-0.23); BASOPHILS PERCENT AUTO 1 % (0-2); EOSINOPHILS ABSOLUTE AUTO 0.08 K/mm3 (0.00-0.68); EOSINOPHILS PERCENT AUTO 1 % (0-6); Hematocrit 46.3 % (33.0-51.0); Hemoglobin 14.6 g/dL (11.5-16.0); IMMATURE GRAN ABSOLUTE AUTO 0.03 K/mm3 (0.00-0.10); IMMATURE GRAN PERCENT AUTO 1 % (0-1); LYMPHOCYTES ABSOLUTE AUTO 0.71 K/mm3 (0.84-5.20); LYMPHOCYTES PERCENT AUTO 11 % (21-46); MONOCYTES ABSOLUTE AUTO 0.69 K/mm3 (0.16-1.47); MONOCYTES PERCENT AUTO 11 % (4-13); Mean Corpuscular HGB 29.8 pg (26.0-34.0); Mean Corpuscular HGB Conc 31.5 g/dL (31.5-36.5); Mean Corpuscular Volume 95 fL (80-100); Mean Platelet Volume 10.3 fL (9.1-12.4); NEUTROPHILS ABSOLUTE AUTO 4.76 K/mm3 (1.96-9.15); NEUTROPHILS PERCENT AUTO 75 % (41-73); Platelet Count 178 K/mm3 (150-400); RDW Coefficient Variation 14.7 % (11.7-14.2); RDW Standard Deviation 51.6 fL (35.1-46.3)
[2019-04-22 11:43] LABS: Alanine Aminotransfer (ALT/SGP 41 U/L (12-78); Albumin, Blood 3.6 g/dL (3.4-5.0); Albumin/Globulin Ratio 1.2 (0.8-1.8); Alk Phos 103 U/L (40-126); Anion Gap 12 mmol/L (6-16); Aspartate Aminotrans (AST/SGOT 33 U/L (12-37); Bilirubin, Total 1.2 mg/dL (0.1-1.0); Blood Urea Nitrogen 21 mg/dL (8-24); Bun/Creatinine Ratio 20.8 (12.0-20.0); CO2, Blood 25 mmol/L (21-32); CPK Creatine Kinase 43 U/L (26-192); Calcium, Blood 8.8 mg/dL (8.5-10.1); Chloride, Blood 107 mmol/L (98-108); Creatinine, Blood 1.01 mg/dL (0.40-1.00); Globulin, Blood 3.1 g/dL (2.2-4.0); Glomerular Filtration Rate 52 (60-); Glucose, Blood 94 mg/dL (70-99); Potassium, Blood 4.3 mmol/L (3.5-5.5); Sodium, Blood 144 mmol/L (136-145); Thyroid Stimulating Hormone 1.385 uIU/mL (0.360-4.800); Total Protein, Blood 6.7 g/dL (6.4-8.2)
[2019-04-22 11:57] LABS: Troponin I <0.017 ng/mL (0.000-0.040)
== END | disposition home or self-care (01) ==
LOC: LAB SHORT 11:19 → LAB EV 11:19
PROVIDERS: General Practice
DX: R06.00 Dyspnea, unspecified (principal)
CPT/HCPCS: 80053; 82550; 83880; 84443; 84484; 85025

== ENCOUNTER 2019-04-23 02:27 | Inpatient (IN) | payer MEDICARE, OTHER ==
[~2019-04-23] VITALS: Ht 167.6 cm; Wt 67.1 kg
[~2019-04-23 02:27] MED LIST changes: -ELIQUIS5 M2 PO; -FURO40 PO
[2019-04-23 03:05] LABS: BASOPHILS ABSOLUTE AUTO 0.04 K/mm3 (0.00-0.23); BASOPHILS PERCENT AUTO 0 % (0-2); EOSINOPHILS ABSOLUTE AUTO 0.06 K/mm3 (0.00-0.68); EOSINOPHILS PERCENT AUTO 1 % (0-6); Hematocrit 47.6 % (33.0-51.0); Hemoglobin 15.1 g/dL (11.5-16.0); IMMATURE GRAN ABSOLUTE AUTO 0.04 K/mm3 (0.00-0.10); IMMATURE GRAN PERCENT AUTO 0 % (0-1); LYMPHOCYTES ABSOLUTE AUTO 0.67 K/mm3 (0.84-5.20); LYMPHOCYTES PERCENT AUTO 5 % (21-46); MONOCYTES ABSOLUTE AUTO 1.02 K/mm3 (0.16-1.47); MONOCYTES PERCENT AUTO 8 % (4-13); Mean Corpuscular HGB Conc 31.7 g/dL (31.5-36.5); Mean Corpuscular Volume 95 fL (80-100); Mean Platelet Volume 10.5 fL (9.1-12.4); NEUTROPHILS ABSOLUTE AUTO 10.94 K/mm3 (1.96-9.15); NEUTROPHILS PERCENT AUTO 86 % (41-73); Platelet Count 174 K/mm3 (150-400); RDW Coefficient Variation 14.4 % (11.7-14.2); RDW Standard Deviation 50.1 fL (35.1-46.3); Red Blood Cell Count 5.03 M/mm3 (3.80-5.20); White Blood Cell Count 12.77 K/mm3 (4.00-11.30)
[2019-04-23 03:30] LABS: Alanine Aminotransfer (ALT/SGP 42 U/L (12-78); Albumin, Blood 3.9 g/dL (3.4-5.0); Albumin/Globulin Ratio 1.3 (0.8-1.8); Alk Phos 115 U/L (50-136); Anion Gap 10 mmol/L (6-16); Aspartate Aminotrans (AST/SGOT 33 U/L (12-37); Bilirubin, Total 1.4 mg/dL (0.1-1.0); Blood Urea Nitrogen 26 mg/dL (8-24); Bun/Creatinine Ratio 27.3 (12.0-20.0); CO2, Blood 27 mmol/L (21-32); Calcium, Blood 9.5 mg/dL (8.5-10.1); Chloride, Blood 103 mmol/L (98-108); Creatinine, Blood 0.95 mg/dL (0.40-1.00); Globulin, Blood 2.9 g/dL (2.2-4.0); Glomerular Filtration Rate 59 (60-); Glucose, Blood 122 mg/dL (70-99); Magnesium, Blood 1.2 mg/dL (1.6-2.4); Potassium, Blood 3.6 mmol/L (3.5-5.5); Sodium, Blood 140 mmol/L (136-145); Total Protein, Blood 6.8 g/dL (6.4-8.2); Troponin I <0.015 ng/mL (0.000-0.040)
[2019-04-23] MEDS ORDERED: ELIQUIS5 M2 PO (05:00)
[2019-04-23] MEDS ORDERED: FURO40 PO (06:19)
--- NOTE | 2019-04-23 06:45 | NUR ---
ADMISSION PT ARRIVES TO PCU 10 @ APPROXIMATELY 0600 THIS AM. PT IS AOX4 AND AMBULATES WITH STANDBY ASSIST. VSS. HEART RHYTHM CURRENTLY AFIB WITH A RATE IN THE 90s PER TELEMETRY. O2 SATS OF 92% ON 2L VIA NASAL CANNULA. PT DENIES FEELING DYSPNEIC, BUT RESPIRATIONS ARE LABORED AND PT IS USING ACCESSORY MUSCLES. CARDIZEM DRIP INFUSING @ 5 MG/HR. PT PULLED R HAND IV OUT ACCIDENTALLY. MAGNESIUM GTT CURRENTLY ON STANDBY. LAB IN TO DRAW BLOOD CULTURES- AZITHROMYCIN STARTED IN ER AND FINISHED JUST PRIOR TO ARRIVAL TO UNIT. PT ORIENTED TO ROOM AND CALL LIGHT SYSTEM. EDUCATED ON CALLING FOR ASSISTANCE. WILL CONTINUE WITH ADMISSION AND MONITORING. BED IN LOW POSITION, CALL LIGHT IN REACH.
[2019-04-23 10:23] LABS: Adenovirus Not Detected (NOT DETECT); Bordetella pertussis Not Detected (NOT DETECT); Chlamydophila pneumoniae Not Detected (NOT DETECT); Coronavirus 229E Not Detected (NOT DETECT); Coronavirus HKU1 Not Detected (NOT DETECT); Coronavirus NL63 Not Detected (NOT DETECT); Coronavirus OC43 Not Detected (NOT DETECT); Human Metapneumovirus Not Detected (NOT DETECT); Human Rhinovirus/Enterovirus Not Detected (NOT DETECT); Influenza A Not Detected (NOT DETECT); Influenza A/2009-H1 Not Detected (NOT DETECT); Influenza A/H1 Not Detected (NOT DETECT); Influenza A/H3 Not Detected (NOT DETECT); Influenza B Not Detected (NOT DETECT); Mycoplasma pneumoniae Not Detected (NOT DETECT); Parainfluenza Virus 1 Not Detected (NOT DETECT); Parainfluenza Virus 2 Not Detected (NOT DETECT); Parainfluenza Virus 3 Not Detected (NOT DETECT); Parainfluenza Virus 4 Not Detected (NOT DETECT); Respiratory Syncytial Virus Not Detected (NOT DETECT)
--- NOTE | 2019-04-23 17:40 | NUR ---
SHIFT SUMMARY PT ALERT AND ORIENTED. HR IS AFIB IN THE 70-90'S. CARDIZEM GTT DC'D AT APPROXIMATELY 1030. BP STABLE. O2 SATS REMAIN ABOVE 90% ON 3L NC. PT COMPLAINED OF PAIN IN HER RIGHT RIB AREA WITH INSPIRATION. PT GIVEN ONE TIME DOSE OF MOTRIN AND PAIN WAS RELIEVED. PT HAS NOT VOIDED SINCE 629. DISCUSSED WITH . AFTER DISCUSSION WITH DR. DENNIS CODE STATUS CHANGED TO DNR. PURPLE BAND ON RIGHT WRIST. WILL CONTINUE TO MONITOR AND REPORT TO ONCOMING RN. FAMILY AT BEDSIDE.
[2019-04-24 04:06] LABS: BASOPHILS ABSOLUTE AUTO 0.01 K/mm3 (0.00-0.23); BASOPHILS PERCENT AUTO 0 % (0-2); EOSINOPHILS ABSOLUTE AUTO 0.06 K/mm3 (0.00-0.68); EOSINOPHILS PERCENT AUTO 1 % (0-6); Hematocrit 39.5 % (33.0-51.0); Hemoglobin 12.6 g/dL (11.5-16.0); IMMATURE GRAN ABSOLUTE AUTO 0.05 K/mm3 (0.00-0.10); IMMATURE GRAN PERCENT AUTO 0 % (0-1); LYMPHOCYTES ABSOLUTE AUTO 0.67 K/mm3 (0.84-5.20); LYMPHOCYTES PERCENT AUTO 6 % (21-46); MONOCYTES ABSOLUTE AUTO 1.39 K/mm3 (0.16-1.47); MONOCYTES PERCENT AUTO 12 % (4-13); Mean Corpuscular HGB Conc 31.9 g/dL (31.5-36.5); Mean Corpuscular Volume 94 fL (80-100); Mean Platelet Volume 10.1 fL (9.1-12.4); NEUTROPHILS ABSOLUTE AUTO 9.83 K/mm3 (1.96-9.15); NEUTROPHILS PERCENT AUTO 82 % (41-73); Platelet Count 123 K/mm3 (150-400); RDW Coefficient Variation 14.6 % (11.7-14.2); White Blood Cell Count 12.01 K/mm3 (4.00-11.30)
[2019-04-24 04:24] LABS: Calcium, Blood 8.5 mg/dL (8.5-10.1); Creatinine, Blood 1.19 mg/dL (0.40-1.00); Magnesium, Blood 1.8 mg/dL (1.6-2.4); Potassium, Blood 4.3 mmol/L (3.5-5.5)
--- NOTE | 2019-04-24 06:05 | NUR ---
SHIFT SUMMARY PT HAS REMAINED AOX4 THROUGHOUT SHIFT. PLEASANT AND COOPERATIVE WITH CARE. PT HAS RESTED WELL THROUGHOUT THE NIGHT, WAKING EASILY FOR CARE. PT WITH ONE EPISODE OF HYPOTENSION LAST NIGHT THAT WAS ASSYMPTOMATIC. HOWEVER, PT DOES REPORT THAT SHE DOES GET SOME "OCCASIONAL DIZZINESS" WHEN SHE IS GETTING UP OUT OF BED. PT EDUCATED ON FALL PREVENTION AND SAFETY; ADVISED TO CALL FOR ASSISTANCE WITH AMBULATION. ALL OTHER VSS. HEART RHYTHM HAS REMAINED IN ATRIAL FIBRILLATION WITH A RATE IN THE 70-80s. O2 SATS HAVE REMAINED >90% ON 2L VIA NASAL CANNULA. PT REPORTS EXERTIONAL DYSPNEA, NO NOTED O2 DESATURATIONS LAST NIGHT. NO OTHER CHANGES NOTED FROM INITIAL ASSESSMENT. WILL CONTINUE TO MONITOR AND REPORT TO ONCOMING SHIFT RN. BED IN LOW POSITION,CALL LIGHT IN REACH. BED ALARM SET FOR SAFETY.
--- NOTE | 2019-04-24 16:20 | NUR ---
TELEPHONE CALL TO [facility] HOSPITALIST FOR PT HR 140-150S; TOLD ME TO CALL CARDIOLOGY. TELEPHONE CALL TO DISTILLERY MILLER HELPER, NEW ORDERS: DIGOXIN 0.125 IV NOW X1, DIGOXIN 0.125 IV 6 HRS LATER (2300), HOLD FOR HR <50, GET DIGOXIN LAB AT 0400.
--- NOTE | 2019-04-24 18:43 | NUR ---
SHIFT SUMMARY PT A&OX4, TELE AFIB AVG 130, WEANED OXYGEN TO 1L NC AT REST, 2L W/EXERTION. DENIES PAIN. DENIES N&V, NEAL PO. STAND PIVOT TO BSC. VOIDING WELL. WILL REPORT TO ONCOMING NOC RN.
[2019-04-25 04:04] LABS: BASOPHILS ABSOLUTE AUTO 0.02 K/mm3 (0.00-0.23); BASOPHILS PERCENT AUTO 0 % (0-2); EOSINOPHILS ABSOLUTE AUTO 0.15 K/mm3 (0.00-0.68); EOSINOPHILS PERCENT AUTO 2 % (0-6); Hematocrit 41.4 % (33.0-51.0); Hemoglobin 13.3 g/dL (11.5-16.0); IMMATURE GRAN ABSOLUTE AUTO 0.03 K/mm3 (0.00-0.10); IMMATURE GRAN PERCENT AUTO 0 % (0-1); LYMPHOCYTES ABSOLUTE AUTO 0.65 K/mm3 (0.84-5.20); LYMPHOCYTES PERCENT AUTO 8 % (21-46); MONOCYTES ABSOLUTE AUTO 1.14 K/mm3 (0.16-1.47); MONOCYTES PERCENT AUTO 15 % (4-13); Mean Corpuscular HGB Conc 32.1 g/dL (31.5-36.5); Mean Corpuscular Volume 94 fL (80-100); Mean Platelet Volume 10.5 fL (9.1-12.4); NEUTROPHILS ABSOLUTE AUTO 5.87 K/mm3 (1.96-9.15); NEUTROPHILS PERCENT AUTO 75 % (41-73); Platelet Count 141 K/mm3 (150-400); RDW Coefficient Variation 14.4 % (11.7-14.2); RDW Standard Deviation 49.5 fL (35.1-46.3); Red Blood Cell Count 4.43 M/mm3 (3.80-5.20); White Blood Cell Count 7.86 K/mm3 (4.00-11.30)
[2019-04-25 04:26] LABS: Anion Gap 5 mmol/L (6-16); Blood Urea Nitrogen 20 mg/dL (8-24); Bun/Creatinine Ratio 21.9 (12.0-20.0); CO2, Blood 29 mmol/L (21-32); Calcium, Blood 8.7 mg/dL (8.5-10.1); Chloride, Blood 105 mmol/L (98-108); Creatinine, Blood 0.91 mg/dL (0.40-1.00); Glomerular Filtration Rate >60 (60-); Glucose, Blood 100 mg/dL (70-99); Potassium, Blood 4.1 mmol/L (3.5-5.5); Sodium, Blood 139 mmol/L (136-145)
[2019-04-25 04:33] LABS: Digoxin (Lanoxin) 0.74 ug/mL (0.80-2.00)
--- NOTE | 2019-04-25 05:38 | NUR ---
SHIFT SUMMARY PT HAS REMAINED AOX4 THROUGHOUT SHIFT. VSS. PLEASANT AND COOPERATIVE WITH CARE. PT HAS SLEPT THROUGH MUCH OF THE NIGHT, WAKING EASILY FOR CARE. PT AMBULATES WITH ONE PERSON ASSIST TO BATHROOM OR BEDSIDE COMMODE. PT HAS DENIED DIZZINESS/LIGHTHEADEDNESS UPON STANDING THROUGHOUT THE NIGHT. HEART RHYTHM REMAINED IN A-FIB WITH A RATE IN THE 90s TO LOW 100s PER TELEMETRY. O2 SATS HAVE REMAINED >90% ON 1L VIA NASAL CANNULA. ATTEMPTED TITRATION TO RA WITHOUT SUCCESS. PT CONTINUES TO REPORT PLEURITIC PAIN TO RIGHT LOWER RIB AREA THAT OCCURS WHEN COUGHING,BUT NOT OTHERWISE- PT DISCUSSED THIS WITH PROVIDER. NO OTHER CHANGES NOTED FROM INITIAL ASSESSMENT. WILL CONTINUE TO MONITOR AND REPORT TO ONCOMING SHIFT RN. BED IN LOW POSITION, CALL LIGHT IN REACH. BED ALARM SET FOR SAFETY.
[2019-04-26 05:44] LABS: Anion Gap 5 mmol/L (6-16); Blood Urea Nitrogen 18 mg/dL (8-24); Bun/Creatinine Ratio 21.3 (12.0-20.0); CO2, Blood 30 mmol/L (21-32); Chloride, Blood 104 mmol/L (98-108); Creatinine, Blood 0.85 mg/dL (0.40-1.00); Glomerular Filtration Rate >60 (60-); Glucose, Blood 99 mg/dL (70-99); Magnesium, Blood 1.8 mg/dL (1.6-2.4); Potassium, Blood 4.4 mmol/L (3.5-5.5); Sodium, Blood 139 mmol/L (136-145)
[2019-04-26 05:55] LABS: Digoxin (Lanoxin) 0.94 ug/mL (0.80-2.00)
--- NOTE | 2019-04-26 07:30 | NUR ---
ASSUMED CARE: PT RESTING IN BED. NC IN PLACE. NO ACUTE DISTRESS NOTED AT THIS TIME. FAMILY AT BEDSIDE
--- NOTE | 2019-04-26 18:10 | NUR ---
SHIFT SUMMARY: PT HAS BEEN RESTING THIS SHIFT BUT USING BSC. FAMILY AT BEDSIDE. PLAN IS FOR POSSIBLE DC IN AM. DENIES NEEDS OR CONCERNS. NO ACUTE CHANGES NOTED
[2019-04-27 04:21] LABS: BASOPHILS ABSOLUTE AUTO 0.04 K/mm3 (0.00-0.23); BASOPHILS PERCENT AUTO 1 % (0-2); EOSINOPHILS ABSOLUTE AUTO 0.21 K/mm3 (0.00-0.68); EOSINOPHILS PERCENT AUTO 4 % (0-6); Hematocrit 47.2 % (33.0-51.0); Hemoglobin 15.2 g/dL (11.5-16.0); IMMATURE GRAN ABSOLUTE AUTO 0.03 K/mm3 (0.00-0.10); IMMATURE GRAN PERCENT AUTO 1 % (0-1); LYMPHOCYTES ABSOLUTE AUTO 0.86 K/mm3 (0.84-5.20); LYMPHOCYTES PERCENT AUTO 15 % (21-46); MONOCYTES ABSOLUTE AUTO 1.03 K/mm3 (0.16-1.47); MONOCYTES PERCENT AUTO 17 % (4-13); Mean Corpuscular HGB 29.8 pg (26.0-34.0); Mean Corpuscular HGB Conc 32.2 g/dL (31.5-36.5); Mean Corpuscular Volume 93 fL (80-100); Mean Platelet Volume 9.9 fL (9.1-12.4); NEUTROPHILS ABSOLUTE AUTO 3.74 K/mm3 (1.96-9.15); NEUTROPHILS PERCENT AUTO 63 % (41-73); Platelet Count 201 K/mm3 (150-400); RDW Coefficient Variation 13.7 % (11.7-14.2); RDW Standard Deviation 47.2 fL (35.1-46.3); White Blood Cell Count 5.91 K/mm3 (4.00-11.30)
[2019-04-27 04:46] LABS: Anion Gap 5 mmol/L (6-16); Blood Urea Nitrogen 21 mg/dL (8-24); Bun/Creatinine Ratio 25.2 (12.0-20.0); CO2, Blood 31 mmol/L (21-32); Calcium, Blood 9.1 mg/dL (8.5-10.1); Chloride, Blood 102 mmol/L (98-108); Creatinine, Blood 0.83 mg/dL (0.40-1.00); Glomerular Filtration Rate >60 (60-); Glucose, Blood 105 mg/dL (70-99); Magnesium, Blood 1.8 mg/dL (1.6-2.4); Potassium, Blood 4.2 mmol/L (3.5-5.5); Sodium, Blood 138 mmol/L (136-145)
[2019-04-27 04:54] LABS: Digoxin (Lanoxin) 0.85 ug/mL (0.80-2.00)
--- NOTE | 2019-04-27 06:27 | NUR ---
SHIFT SUMMARY PATIENT PLEASENT AND COOPERATIVE THROUGHOUT THE NIGHT. PATIENT APPEARED TO SLEEP WELL LAST NIGHT. PATIENT VERY OPTIMISTIC THAT SHE WILL BE ABLE TO GO HOME TODAY. PATIENT UP TO THE BATHROOM AND EXPERIENCED SOME SHORTNESS OF BREATH THAT RESOLVED WITH AN INCREASE IN O2 FROM 1L TO 4L FOR SEVERAL MINUTES, THEN O2 WAS DECREASED BACK TO 1L AND PATIENT NO LONGER HAD COMPLAINTS OF SHORTNESS OF BREATH. PATIENT CURRENTLY RESTING IN BED. WILL CONTINUE TO MONITOR PATIENT AND REPORT TO ONCOMING RN.
--- NOTE | 2019-04-27 07:22 | NUR ---
ASSUMED CARE: PT RESTING QUIETLY IN BED AT THIS TIME. NO ACUTE DISTRESS NOTED.
[2019-04-27] MEDS ORDERED: ALBU2.5V5 INH (14:27)
[2019-04-27] MEDS ORDERED: ACET325 PO (14:44)
[2019-04-27] MEDS ORDERED: LANOXIN125 MCG PO (14:45)
[2019-04-27] MEDS ORDERED: LEVO750 PO (15:22)
--- NOTE | 2019-04-27 15:55 | NUR ---
IV DC'D DUE TO LEAKING DURING ADMINISTRATION OF LEVAQUIN. EDUCATED PT TO TAKE A DOSE OF LEVAQUIN TODAY WHEN SHE GOT HOME AND TO TAKE WITH FOOD AND UNTIL GONE. EDUCATED PT AND FAMILY ABOUT FOLLOW UP APPOINTMENTS AND NUMBERS TO CALL IF THEY HAVE QUESTIONS. ESCORTED OUT VIA WHEEL CHAIR BY HOSPITAL STAFF. NO FURTHER QUESTIONS OR CONCERNS.
== END 2019-04-27 15:49 | disposition home or self-care (01) | DRG 193 ==
LOC: ER 02:27 → PCU 05:33
PROVIDERS: Emergency Medicine; Internal Medicine Cardiovascular Disease; ADMIT Internal Medicine
DX: J13 Pneumonia due to Streptococcus pneumoniae (principal); J96.21 Acute and chronic respiratory failure with hypoxia; I50.33 Acute on chronic diastolic (congestive) heart failure; I48.21 Permanent atrial fibrillation; J44.0 Chronic obstructive pulmonary disease with (acute) lower respiratory infection; J44.1 Chronic obstructive pulmonary disease with (acute) exacerbation; I25.10 Atherosclerotic heart disease of native coronary artery without angina pectoris; N18.3 Chronic kidney disease, stage 3 (moderate); I35.0 Nonrheumatic aortic (valve) stenosis; E83.42 Hypomagnesemia; Z66 Do not resuscitate
CPT/HCPCS: 0099U; 36415; 71045; 80048; 80053; 80162; 83605; 83735; 83880; 84145; 84484; 85025; 87040; 87070; 87186; 87205; 93005; 93010; 94640; 94760; 94761; 94762; 96365; 96368; 96376; 99285-25; A9270; A9270-GY; J0456; J0696; J1160; J1940; J1956; J3475; J7030; J7050

== ENCOUNTER 2020-08-26 07:16 | Day surgery (SDC) | payer MEDICARE, OTHER ==
[~2020-08-26] VITALS: Ht 170.2 cm; Wt 67.7 kg
[~2020-08-26 07:16] MED LIST changes: +ACET325 PO; +ALBU2.5V5 INH; +ELIQUIS5 M2 PO; +FURO40 PO; +LANOXIN125 MCG PO; +LEVO750 PO; +TIOT18 INH
== END 2020-08-26 13:00 | disposition home or self-care (01) ==
LOC: MHTC 07:16
DX: Z01.810 Encounter for preprocedural cardiovascular examination (principal); I08.3 Combined rheumatic disorders of mitral, aortic and tricuspid valves; I25.10 Atherosclerotic heart disease of native coronary artery without angina pectoris; I48.19 Other persistent atrial fibrillation; I27.20 Pulmonary hypertension, unspecified; J44.9 Chronic obstructive pulmonary disease, unspecified; I25.2 Old myocardial infarction; Z79.01 Long term (current) use of anticoagulants; Z79.82 Long term (current) use of aspirin; Z79.51 Long term (current) use of inhaled steroids
CPT/HCPCS: 85347; 92920; 93454; 99152; 99153; C1725; C1769; C1887; C1894; J1644; J2370; J3010; J7030; J7040; J7050; Q9967

== ENCOUNTER → 2020-08-28 | Outpatient (CLI) | payer MEDICARE, OTHER ==
[~2020-08-28] MED LIST changes: +ALEN70 PO; +Aspir 8181 MG PO
== END ==
LOC: LAB SHORT 18:04 → LAB EV 18:04
DX: R35.0 Frequency of micturition (principal)
CPT/HCPCS: 87077; 87086; 87186

== ENCOUNTER 2020-09-12 07:23 | Inpatient (IN) | payer MEDICARE, OTHER ==
[~2020-09-12] VITALS: Ht 170.2 cm; Wt 65.7 kg
[2020-09-12] MEDS ORDERED: INCRUSE ELLIPTA 62.5 PO (07:53)
[2020-09-12 13:28] LABS: Source, Urine Catheter
[2020-09-12 13:48] LABS: Appearance, Urine Clear (Clear); Bilirubin, Urine Neg (Neg); Blood, Urine Neg (Neg); Color, Urine Yellow (P-Yellow); Glucose Qualitative, Urine Neg (Neg); Ketones, Urine Neg (Neg); Leukocyte Esterase, Urine Neg (Neg); Nitrite, Urine Neg (Neg); Protein, Urine Neg (Neg); Urobilinogen, Urine NORM (Normal); pH, Urine 6.5 (5.0-8.0)
[2020-09-12 14:26] LABS: Influenza A, PCR NEGATIVE (NEGATIVE); Influenza B, PCR NEGATIVE (NEGATIVE); Resp Syncytial Virus, PCR NEGATIVE (NEGATIVE); SARS-Cov-2 (COVID-19) PCR, MMC NEGATIVE (NEGATIVE)
== END 2020-09-12 16:50 | disposition short-term general hospital (02) | DRG 286 ==
LOC: MHTC 07:23 → ICUW 11:16 → MHTC 11:49 → ICUW 16:50
PROVIDERS: Internal Medicine Cardiovascular Disease; ADMIT Internal Medicine Cardiovascular Disease
PROC: 4A023N7 Measurement of Cardiac Sampling and Pressure, Left Heart, Percutaneous Approach (ICD-10-PCS; principal; 2020-09-12)
PROC: B2111ZZ Fluoroscopy of Multiple Coronary Arteries using Low Osmolar Contrast (ICD-10-PCS; 2020-09-12)
PROC: 5A1223Z Performance of Cardiac Pacing, Continuous (ICD-10-PCS; 2020-09-12)
DX: I25.10 Atherosclerotic heart disease of native coronary artery without angina pectoris (principal); I25.42 Coronary artery dissection; I48.19 Other persistent atrial fibrillation; I97.88 Other intraoperative complications of the circulatory system, not elsewhere classified; I08.3 Combined rheumatic disorders of mitral, aortic and tricuspid valves; Z20.822 Contact with and (suspected) exposure to COVID-19; I48.91 Unspecified atrial fibrillation; J44.9 Chronic obstructive pulmonary disease, unspecified; I27.20 Pulmonary hypertension, unspecified; I25.2 Old myocardial infarction; Z79.01 Long term (current) use of anticoagulants; Z79.82 Long term (current) use of aspirin; Z79.899 Other long term (current) drug therapy; Y65.8 Other specified misadventures during surgical and medical care
CPT/HCPCS: 0241U; 33210; 76937; 81003; 85347; 92920; 93005; 93010; 99152; 99153; C1760; C1769; C1887; C1894; J0360; J0461; J1644; J2250; J2370; J3010; J3246; J7030; J7040; J7050; Q9967

== ENCOUNTER 2020-11-28 14:11 | Emergency (ER) | payer MEDICARE ==
[~2020-11-28] VITALS: Ht 170.2 cm; Wt 61.2 kg
[~2020-11-28 14:11] MED LIST changes: +INCRUSE ELLIPTA 62.5 PO
[2020-11-28] MEDS ORDERED: ATOR40TA PO (14:23)
[2020-11-28] MEDS ORDERED: METOPROLOL SUCC25 MG PO (14:24)
[2020-11-28] MEDS ORDERED: PLAVIX75 MG PO (14:24)
[2020-11-28] MEDS ORDERED: MAGNESIUM OXID400 M1 PO (14:25)
[2020-11-28] MEDS ORDERED: FLUTICASONE-SA1 EAC9 INH (14:25)
[2020-11-28] MEDS ORDERED: INCRUSE ELLIPTA 62.5 INH (14:25)
[2020-11-28] MEDS ORDERED: FUROSEMIDE20 MG PO (14:26)
[2020-11-28] MEDS ORDERED: SPIRONOLACTONE25 MG PO (14:26)
[2020-11-28] MEDS ORDERED: PANTOPRAZOLE SO40 M2 PO (14:26)
[2020-11-28 14:35] LABS: BASOPHILS ABSOLUTE AUTO 0.02 K/mm3 (0.00-0.23); BASOPHILS PERCENT AUTO 0 % (0-2); EOSINOPHILS ABSOLUTE AUTO 0.05 K/mm3 (0.00-0.68); EOSINOPHILS PERCENT AUTO 1 % (0-6); Hematocrit 33.3 % (33.0-51.0); Hemoglobin 9.9 g/dL (11.5-16.0); IMMATURE GRAN ABSOLUTE AUTO 0.01 K/mm3 (0.00-0.10); IMMATURE GRAN PERCENT AUTO 0 % (0-1); LYMPHOCYTES ABSOLUTE AUTO 0.81 K/mm3 (0.84-5.20); LYMPHOCYTES PERCENT AUTO 14 % (21-46); MONOCYTES ABSOLUTE AUTO 0.88 K/mm3 (0.16-1.47); MONOCYTES PERCENT AUTO 15 % (4-13); Mean Corpuscular HGB 27.7 pg (26.0-34.0); Mean Corpuscular HGB Conc 29.7 g/dL (31.5-36.5); Mean Corpuscular Volume 93 fL (80-100); Mean Platelet Volume 10.7 fL (9.1-12.4); NEUTROPHILS ABSOLUTE AUTO 4.09 K/mm3 (1.96-9.15); NEUTROPHILS PERCENT AUTO 70 % (41-73); Platelet Count 172 K/mm3 (150-400); RDW Coefficient Variation 13.3 % (11.7-14.2); RDW Standard Deviation 45.1 fL (35.1-46.3); Red Blood Cell Count 3.58 M/mm3 (3.80-5.20); White Blood Cell Count 5.86 K/mm3 (4.00-11.30)
[2020-11-28 14:56] LABS: Alanine Aminotransfer (ALT/SGP 31 U/L (12-78); Albumin, Blood 3.2 g/dL (3.4-5.0); Alk Phos 102 U/L (50-136); Anion Gap 4 mmol/L (6-16); Aspartate Aminotrans (AST/SGOT 26 U/L (12-37); Bilirubin, Total 0.7 mg/dL (0.1-1.0); Blood Urea Nitrogen 27 mg/dL (8-24); Bun/Creatinine Ratio 29.7 (12.0-20.0); CO2, Blood 35 mmol/L (21-32); Calcium, Blood 9.1 mg/dL (8.5-10.1); Chloride, Blood 102 mmol/L (98-108); Creatinine, Blood 0.91 mg/dL (0.40-1.00); Globulin, Blood 3.1 g/dL (2.2-4.0); Glomerular Filtration Rate >60 (60-); Glucose, Blood 146 mg/dL (70-99); Potassium, Blood 3.5 mmol/L (3.5-5.5); Sodium, Blood 141 mmol/L (136-145); Total Protein, Blood 6.3 g/dL (6.4-8.2); Troponin I <0.015 ng/mL (0.000-0.040)
[2020-11-28] MEDS ORDERED: Prednisone20 MG PO (16:52)
== END 2020-11-28 18:36 | disposition home or self-care (01) ==
LOC: ER 14:11
PROVIDERS: Emergency Medicine
DX: J44.1 Chronic obstructive pulmonary disease with (acute) exacerbation (principal); Z79.02 Long term (current) use of antithrombotics/antiplatelets; Z79.82 Long term (current) use of aspirin; Z79.01 Long term (current) use of anticoagulants; Z79.899 Other long term (current) drug therapy
CPT/HCPCS: 71046; 80053; 83690; 84484; 85025; 93005; 93010; 94640; 96374; 99285-25

== ENCOUNTER 2020-12-09 15:34 | Inpatient (IN) | payer MEDICARE ==
[~2020-12-09] VITALS: Ht 170.2 cm; Wt 66.3 kg
[~2020-12-09 15:34] MED LIST changes: -ALEN70 PO; -Aspir 8181 MG PO; +SPIRONOLACTONE25 MG PO
[2020-12-09 16:06] LABS: BASOPHILS ABSOLUTE AUTO 0.03 K/mm3 (0.00-0.23); BASOPHILS PERCENT AUTO 0 % (0-2); EOSINOPHILS ABSOLUTE AUTO 0.07 K/mm3 (0.00-0.68); EOSINOPHILS PERCENT AUTO 1 % (0-6); Hematocrit 31.4 % (33.0-51.0); Hemoglobin 9.6 g/dL (11.5-16.0); IMMATURE GRAN ABSOLUTE AUTO 0.04 K/mm3 (0.00-0.10); IMMATURE GRAN PERCENT AUTO 1 % (0-1); LYMPHOCYTES ABSOLUTE AUTO 0.56 K/mm3 (0.84-5.20); LYMPHOCYTES PERCENT AUTO 7 % (21-46); MONOCYTES ABSOLUTE AUTO 0.99 K/mm3 (0.16-1.47); MONOCYTES PERCENT AUTO 13 % (4-13); Mean Corpuscular HGB 27.2 pg (26.0-34.0); Mean Corpuscular HGB Conc 30.6 g/dL (31.5-36.5); Mean Corpuscular Volume 89 fL (80-100); Mean Platelet Volume 10.3 fL (9.1-12.4); NEUTROPHILS ABSOLUTE AUTO 5.96 K/mm3 (1.96-9.15); NEUTROPHILS PERCENT AUTO 78 % (41-73); Platelet Count 218 K/mm3 (150-400); RDW Coefficient Variation 13.6 % (11.7-14.2); Red Blood Cell Count 3.53 M/mm3 (3.80-5.20); White Blood Cell Count 7.65 K/mm3 (4.00-11.30)
[2020-12-09 16:33] LABS: Albumin, Blood 3.1 g/dL (3.4-5.0); Albumin/Globulin Ratio 1.1 (0.8-1.8); Bilirubin, Total 0.8 mg/dL (0.1-1.0); Bun/Creatinine Ratio 19.4 (12.0-20.0); Calcium, Blood 8.7 mg/dL (8.5-10.1); Creatinine, Blood 1.08 mg/dL (0.40-1.00); Globulin, Blood 2.7 g/dL (2.2-4.0); Potassium, Blood 3.3 mmol/L (3.5-5.5); Total Protein, Blood 5.8 g/dL (6.4-8.2); Troponin I 0.022 ng/mL (0.000-0.040)
[2020-12-09] MEDS ORDERED: FERSU300 PO (19:55)
[2020-12-09] MEDS ORDERED: INCRUSE ELLIPTA 62.5 INH (19:56)
[2020-12-09] MEDS ORDERED: ALEN70 PO (19:56)
[2020-12-09] MEDS ORDERED: ATOR40TA PO (19:56)
[2020-12-09] MEDS ORDERED: PLAVIX75 MG PO (19:57)
[2020-12-09] MEDS ORDERED: METOPROLOL SUCC25 MG PO (19:57)
[2020-12-09] MEDS ORDERED: FURO40 PO (19:57)
[2020-12-09] MEDS ORDERED: PANTOPRAZOLE SO40 M2 PO (19:58)
[2020-12-09] MEDS ORDERED: MAGNESIUM OXID400 M1 PO (19:58)
[2020-12-09] MEDS ORDERED: FLUTICASONE-SA1 EAC9 INH (19:58)
[2020-12-09] MEDS ORDERED: Aspir 8181 MG PO (19:59)
[2020-12-09] MEDS ORDERED: Ventolin/Prove6.7 GM INH (20:00)
[2020-12-10 00:15] LABS: Troponin I 0.026 ng/mL (0.000-0.040)
[2020-12-10 02:37] LABS: Source, Urine Clean Catch
[2020-12-10 02:44] LABS: Appearance, Urine Clear (Clear); Bilirubin, Urine Neg (Neg); Blood, Urine 1+ (Neg); Color, Urine Yellow (P-Yellow); Glucose Qualitative, Urine Neg (Neg); Ketones, Urine Neg (Neg); Leukocyte Esterase, Urine 1+ (Neg); Nitrite, Urine Neg (Neg); Protein, Urine 2+ (Neg); Urobilinogen, Urine NORM (Normal)
[2020-12-10 02:49] LABS: Amorphous Light (0-Heavy); Bacteria Few /hpf; Hyaline Casts 0-2 /lpf (0-2); Red Blood Cells, Urine 0-2 /hpf (0-2); Squamous Epithelial Cells Few /hpf (Few)
--- NOTE | 2020-12-10 05:49 | NUR ---
FOUNTAIN CLERK SUMMARY PT'S O2 SATS REMAIN >92% ON 3L VIA NC. PT REFUSED TO TRY ANY FORM OF CPAP SHE SAID SHE IS TOO CLAUSTRAPHOBIC. PT'S HR WAS 110-135 SO ORDER FOR PO CARDIZEM OBTAINED AND GIVEN, PT'S HR THEN AFIB 80-90'S THE REST OF THE SHIFT. BP WNL AND STABLE. PT'S L KNEE VERY SWOLLEN AND PAINFUL SO ICE GENTLY PLACED ON THE KNEE AND PT MEDICATED PER EMAR. PT IS AXO X4 AND VERY PLEASANT. WILL REPORT TO ONCOMING RN.
[2020-12-10 08:28] LABS: BASOPHILS PERCENT AUTO 0 % (0-2); EOSINOPHILS PERCENT AUTO 0 % (0-6); Hematocrit 28.9 % (33.0-51.0); Hemoglobin 8.8 g/dL (11.5-16.0); IMMATURE GRAN ABSOLUTE AUTO 0.02 K/mm3 (0.00-0.10); IMMATURE GRAN PERCENT AUTO 1 % (0-1); LYMPHOCYTES ABSOLUTE AUTO 0.32 K/mm3 (0.84-5.20); LYMPHOCYTES PERCENT AUTO 9 % (21-46); MONOCYTES ABSOLUTE AUTO 0.28 K/mm3 (0.16-1.47); MONOCYTES PERCENT AUTO 8 % (4-13); Mean Corpuscular HGB 26.9 pg (26.0-34.0); Mean Corpuscular HGB Conc 30.4 g/dL (31.5-36.5); Mean Corpuscular Volume 88 fL (80-100); Mean Platelet Volume 10.2 fL (9.1-12.4); NEUTROPHILS ABSOLUTE AUTO 3.11 K/mm3 (1.96-9.15); NEUTROPHILS PERCENT AUTO 83 % (41-73); Platelet Count 211 K/mm3 (150-400); RDW Coefficient Variation 13.7 % (11.7-14.2); RDW Standard Deviation 43.9 fL (35.1-46.3); Red Blood Cell Count 3.27 M/mm3 (3.80-5.20); White Blood Cell Count 3.73 K/mm3 (4.00-11.30)
[2020-12-10 08:51] LABS: Albumin/Globulin Ratio 1.1 (0.8-1.8); Bilirubin, Total 0.8 mg/dL (0.1-1.0); Bun/Creatinine Ratio 23.6 (12.0-20.0); Calcium, Blood 8.5 mg/dL (8.5-10.1); Creatinine, Blood 1.06 mg/dL (0.40-1.00); Globulin, Blood 2.7 g/dL (2.2-4.0); Potassium, Blood 4.3 mmol/L (3.5-5.5); Total Protein, Blood 5.7 g/dL (6.4-8.2); Troponin I 0.022 ng/mL (0.000-0.040)
[2020-12-10 09:03] LABS: BASOPHILS PERCENT MAN 0 % (0-2); EOSINOPHILS PERCENT MAN 0 % (0-6); LYMPHOCYTES ABSOLUTE MAN 0.22 K/mm3 (0.84-5.20); LYMPHOCYTES PERCENT MAN 6 % (21-46); MONOCYTES ABSOLUTE MAN 0.07 K/mm3 (0.16-1.47); MONOCYTES PERCENT MAN 2 % (4-13); NEUTROPHILS ABSOLUTE MAN 3.43 K/mm3 (1.96-9.15); SEG NEUTROPHILS PERCENT MAN 92 % (41-73); TOTAL CELLS COUNTED 100
--- NOTE | 2020-12-10 14:46 | NUR ---
ADMIT:12/09/20 DISCHARGE: DX: CHF Exacerbation CC: [email or web address] Emergency contact: Zachery Ponce (Jerry) [phone] DX:chronic Afib, cardiac valvular disease, COPD, GI bleed, prediabetes, CKD-stage 3 DME: portable oxygen concentrator CCM: referral- 2018 HOME HEALTH: [facility]- 2020 SUMMARY: Admit: 12/09/20 12/10/20- Met with the pt, she reports that she was independent prior to coming into the hospital and her grandson checks on her twice a day. Pt states that she has home health with [facility] this year but is no longer active with their services. She reports that she lives alone but grandson does check on her and home health used to come into the home. Pt reports that [facility] quit services because she wanted them to clean her home and she was told that is not they do. We discussed getting her resources for [employer] to contact to hire someone to come clean her home. Pt went off on how she is not happy with her current PCP because he had asked her if she had a "black, tarry" stools and she told him no. She reports that he than ordered a stool test and when she went to the pharmacy, the test was not there. She reports that she went to the lab in [place] and that it was not their job to track down where the test is. Offered to find out what happened but patient refused. Discussed with pt that she lives in a single story home with working utilities and that she has 9 steps to get up into her home. She does not want to get rid of the stairs because they are they only thing that provides her exercise. Pt reports that she still drives and takes herself to her appts and is able to citrus picker her Rx. She uses [facility] on [address]. Pt is able to manage her own medications. Pt reports that she would really like to have someone come into the home to help with a few cleaning things. Asked if she needs assistance with getting meals, she acknowledged that she would like sign up for meals on wheels. Offered to fill out the online form for her but she would like to discuss it with her grandson first. Was able to provide her information for the program along with house neighborhood planner. Pt states that she does not have a POA but she needs one. She did identify that her NOK is Jerry Ponce. -gisella
--- NOTE | 2020-12-10 19:19 | NUR ---
SHIFT SUMMARY: NO ACUTE CHANGES T/OUT THE DAY. PT CONTINUES A&OX4, MAINTAINING O2 SATS ON HER BASELINE O2 OF 3 L/MIN, AFIB ON MONITOR WITH RATE CONTROLLED. PT RECEIVING LASIX THERAPY VIA IV, TOLERATING WELL. PT FOUND TO HAVE LEAK AROUND HER INDWELLING MENA, MENA WAS FLUSHED, PERICARE PERFORMED, NO LEAKAGE FROM MENA SINCE FLUSHING WAS PERFORMED. MEPILEX TO COCCYX CHANGED, PT ABLE TO ASSIST WITH REPOSITIONING. REPORT HAS BEEN GIVEN TO RIGO MOCTEZUMA TO ASSUME CARE OF PT.
[2020-12-11 04:16] LABS: BASOPHILS ABSOLUTE AUTO 0.02 K/mm3 (0.00-0.23); BASOPHILS PERCENT AUTO 0 % (0-2); EOSINOPHILS ABSOLUTE AUTO 0.04 K/mm3 (0.00-0.68); EOSINOPHILS PERCENT AUTO 0 % (0-6); Hematocrit 27.4 % (33.0-51.0); Hemoglobin 8.4 g/dL (11.5-16.0); IMMATURE GRAN ABSOLUTE AUTO 0.05 K/mm3 (0.00-0.10); IMMATURE GRAN PERCENT AUTO 0 % (0-1); LYMPHOCYTES ABSOLUTE AUTO 0.78 K/mm3 (0.84-5.20); LYMPHOCYTES PERCENT AUTO 7 % (21-46); MONOCYTES PERCENT AUTO 14 % (4-13); Mean Corpuscular HGB 27.2 pg (26.0-34.0); Mean Corpuscular HGB Conc 30.7 g/dL (31.5-36.5); Mean Corpuscular Volume 89 fL (80-100); Mean Platelet Volume 10.4 fL (9.1-12.4); NEUTROPHILS ABSOLUTE AUTO 8.66 K/mm3 (1.96-9.15); NEUTROPHILS PERCENT AUTO 78 % (41-73); Platelet Count 190 K/mm3 (150-400); RDW Coefficient Variation 14.5 % (11.7-14.2); RDW Standard Deviation 45.5 fL (35.1-46.3); Red Blood Cell Count 3.09 M/mm3 (3.80-5.20); White Blood Cell Count 11.15 K/mm3 (4.00-11.30)
[2020-12-11 04:36] LABS: Bun/Creatinine Ratio 24.8 (12.0-20.0); Calcium, Blood 8.4 mg/dL (8.5-10.1); Creatinine, Blood 1.29 mg/dL (0.40-1.00); Potassium, Blood 3.9 mmol/L (3.5-5.5)
--- NOTE | 2020-12-11 05:03 | NUR ---
VISUAL EDUCATOR SUMMARY PT IS AXO X4. PT HAS HAD O2 SATS >92% ON 3L VIA NC OCCASIONALLY NEEDING 4L TO MAINTAIN O2 SATS. PT GIVEN CARDIZEM X1 AT THE START OF THE SHIFT FOR HR >130 WHICH THE PT RESPONDED WELL TO AND MAINTAINED HR 90-110 ALL SHIFT. PT HAD 550ML CLEAR YELLOW URINE OUT THIS SHIFT PER MENA. WILL REPORT TO ONCOMING RN.
--- NOTE | 2020-12-11 19:09 | NUR ---
PT REPORTED NO CHANGE IN SWELLING OR ECCHYMOSIS OF MEDIAL L KNEE AND DENIES PAIN; MENA CARE PERFORMED AND ADEQUATE URINE OUTPUT; DIURETIC RX ADMINISTERED PER MAR; PT HEART RATE INCREASED TO 130'S WHILE FAMILY MEMBER AT BEDSIDE AND SPONTANEOUSLY DECREASED TO 90'S WHEN FAMILY MEMBER LEFT; VSS STABLE OTHERWISE; PT ATE 100% OF MEALS WITH ACTIVE BS AND NO BM; PT MYLES EQUALLY AND WEAKLY; PT DENIES ADDITIONAL CONCERNS AT THIS TIME
[2020-12-12 04:16] LABS: BASOPHILS ABSOLUTE AUTO 0.01 K/mm3 (0.00-0.23); BASOPHILS PERCENT AUTO 0 % (0-2); EOSINOPHILS ABSOLUTE AUTO 0.15 K/mm3 (0.00-0.68); EOSINOPHILS PERCENT AUTO 2 % (0-6); Hematocrit 29.2 % (33.0-51.0); Hemoglobin 8.8 g/dL (11.5-16.0); IMMATURE GRAN ABSOLUTE AUTO 0.04 K/mm3 (0.00-0.10); IMMATURE GRAN PERCENT AUTO 0 % (0-1); LYMPHOCYTES ABSOLUTE AUTO 0.83 K/mm3 (0.84-5.20); LYMPHOCYTES PERCENT AUTO 9 % (21-46); MONOCYTES ABSOLUTE AUTO 1.36 K/mm3 (0.16-1.47); MONOCYTES PERCENT AUTO 14 % (4-13); Mean Corpuscular HGB Conc 30.1 g/dL (31.5-36.5); Mean Corpuscular Volume 90 fL (80-100); Mean Platelet Volume 10.3 fL (9.1-12.4); NEUTROPHILS ABSOLUTE AUTO 7.18 K/mm3 (1.96-9.15); NEUTROPHILS PERCENT AUTO 75 % (41-73); Platelet Count 193 K/mm3 (150-400); RDW Coefficient Variation 14.5 % (11.7-14.2); RDW Standard Deviation 46.4 fL (35.1-46.3); Red Blood Cell Count 3.26 M/mm3 (3.80-5.20); White Blood Cell Count 9.57 K/mm3 (4.00-11.30)
[2020-12-12 04:38] LABS: Bun/Creatinine Ratio 28.3 (12.0-20.0); Calcium, Blood 8.2 mg/dL (8.5-10.1); Creatinine, Blood 1.06 mg/dL (0.40-1.00); Potassium, Blood 3.7 mmol/L (3.5-5.5)
--- NOTE | 2020-12-12 05:58 | NUR ---
SHIFT SUMMARY PATIENT RESTING COMFORTABLY IN BED AT THIS TIME. A&OX4, MYLES, WITH GEN WEAKNESS. BEDREST AT THIS TIME. ON HOME DOSE OF 3L NC SATING HIGH 90'S. ALVAREZ IMPROVING PER PATIENT REPORT. VSS. AFIB IN THE 90'S-[address] MENA IN PL[address] PATENT AND DRAINING TO GRAVITY. DIURESING CONTINUES. ENCOURAGING TURNING IN BED. NO PAIN OR DISTRESS NOTED. NO ACUTE CONCERNS AT THIS TIME. WILL CONTINUE TO MONITOR UNTIL REPORT GIVEN TO DAYSHIFT RN.
--- NOTE | 2020-12-12 16:41 | NUR ---
SHIFT SUMMARY PT ALERT ORIENTEDX4; CALLS APPROPRIATELY. PT HAD AN EPISODE OF AFIB 130'S-140'S THIS AM; DR AWARE AT BEDSIDE. CARDIZEM PO GIVENX1. ALSO ORDERED METOPROLOL INJ FOR TACHYCARDIA NEEDED. PT NOW VSS AND HR AFIN 90S. DENIES CP. PT IS ON 3L OF O2; SATS ABOVE 90S. MENA DRAINING AND PATENT FOR STRICT I'S AND O'S. BED IS IN THE LOWEST POSITION AND CALL LIGHT WITHIN REACH
[2020-12-13 03:57] LABS: BASOPHILS ABSOLUTE AUTO 0.02 K/mm3 (0.00-0.23); BASOPHILS PERCENT AUTO 0 % (0-2); EOSINOPHILS ABSOLUTE AUTO 0.12 K/mm3 (0.00-0.68); EOSINOPHILS PERCENT AUTO 1 % (0-6); Hematocrit 30.7 % (33.0-51.0); Hemoglobin 9.3 g/dL (11.5-16.0); IMMATURE GRAN ABSOLUTE AUTO 0.04 K/mm3 (0.00-0.10); IMMATURE GRAN PERCENT AUTO 0 % (0-1); LYMPHOCYTES ABSOLUTE AUTO 0.86 K/mm3 (0.84-5.20); LYMPHOCYTES PERCENT AUTO 8 % (21-46); MONOCYTES PERCENT AUTO 13 % (4-13); Mean Corpuscular HGB 27.1 pg (26.0-34.0); Mean Corpuscular HGB Conc 30.3 g/dL (31.5-36.5); Mean Corpuscular Volume 90 fL (80-100); NEUTROPHILS ABSOLUTE AUTO 8.24 K/mm3 (1.96-9.15); NEUTROPHILS PERCENT AUTO 77 % (41-73); Platelet Count 190 K/mm3 (150-400); RDW Coefficient Variation 14.5 % (11.7-14.2); RDW Standard Deviation 46.3 fL (35.1-46.3); Red Blood Cell Count 3.43 M/mm3 (3.80-5.20); White Blood Cell Count 10.68 K/mm3 (4.00-11.30)
[2020-12-13 04:22] LABS: Bun/Creatinine Ratio 26.9 (12.0-20.0); Calcium, Blood 8.5 mg/dL (8.5-10.1); Creatinine, Blood 0.97 mg/dL (0.40-1.00); Potassium, Blood 4.1 mmol/L (3.5-5.5)
--- NOTE | 2020-12-13 06:00 | NUR ---
SHIFT SUMMARY PT CURRENTLY SLEEPING. A+OX4. PT HAD TWO EPISODES OF AFIB W/ HR IN 130'S. MANAGED BY IV LOPRESSOR. D/C PENDING ON STABLE HR. HR BETWEEN 80-110 FOLLOWING LOPRESSOR AND O2 SATS AT >93% ON 3L NC. INTERMITTENT DYSPNEA THROUGHOUT EVENING. PT PLEASANT AND COOPERATIVE TO CARE. CALL ALARM LEFT AT HER SIDE.
--- NOTE | 2020-12-13 18:00 | NUR ---
UPDATE 12/13/20: DISCUSSED DISCHARGE PLANNING WITH PT. HER SON IS PROVIDING HER WITH SUPPORT SUCH TRANSPORTATION. SHE DENIED CONCERNS WITH BARRIERS TO MOBILITY OR SAFETY AT HOME. PT. DENIED NEED FOR ADDITIONAL DME AT THIS TIME. AT TIME OF DISCHARGE, PATIENT'S SON WILL PROVIDE TRANSPORTATION AND ASSIST WITH HER MEDICATIONS. PT. IS SCHEDULED FOR A HOSPITAL F/U APPOINTMENT WITH DR. GREER ON 12/19/20
--- NOTE | 2020-12-13 19:30 | NUR ---
PT HAD LEAKING CATHETER 1X AND HAD BED LINENS CHANGED; SACRAL MEPILEX CHANGED; FLUID RESTRICTION OBSERVED; PT ATE 100% OF ALL MEALS; TRANSFER ORDERS PLACED; REPORT GIVEN TO RIGO GUTIERREZ AT 1742 VIA PHONE; PT TRANSFERRED TO ROOM 357 AT 1804 VIA WHEELCHAIR WITH 3LNC AND TELEMETRY; PT HEART RATE INCREASED TO 130'S DURING TRANSFER NOTIFIED BY TOOL SHAPER SET UP OPERATOR SHA; PT DENIES ADDITIONAL CONCERNS AT THIS TIME
[2020-12-14 04:56] LABS: BASOPHILS ABSOLUTE AUTO 0.02 K/mm3 (0.00-0.23); BASOPHILS PERCENT AUTO 0 % (0-2); EOSINOPHILS PERCENT AUTO 2 % (0-6); Hematocrit 30.2 % (33.0-51.0); Hemoglobin 9.1 g/dL (11.5-16.0); IMMATURE GRAN ABSOLUTE AUTO 0.04 K/mm3 (0.00-0.10); IMMATURE GRAN PERCENT AUTO 1 % (0-1); LYMPHOCYTES ABSOLUTE AUTO 0.85 K/mm3 (0.84-5.20); LYMPHOCYTES PERCENT AUTO 10 % (21-46); MONOCYTES ABSOLUTE AUTO 1.25 K/mm3 (0.16-1.47); MONOCYTES PERCENT AUTO 14 % (4-13); Mean Corpuscular HGB 26.8 pg (26.0-34.0); Mean Corpuscular HGB Conc 30.1 g/dL (31.5-36.5); Mean Corpuscular Volume 89 fL (80-100); Mean Platelet Volume 10.5 fL (9.1-12.4); NEUTROPHILS PERCENT AUTO 73 % (41-73); Platelet Count 192 K/mm3 (150-400); RDW Coefficient Variation 14.4 % (11.7-14.2); RDW Standard Deviation 45.7 fL (35.1-46.3); White Blood Cell Count 8.66 K/mm3 (4.00-11.30)
--- NOTE | 2020-12-14 05:11 | NUR ---
SUMMARY PT HAD NO NEW ISSUES NOTED. PT CONTINUES TO HAVE SOB W/ EXERTION. PT DENIES CX PAIN. PT HAS SLEPT T/O SHIFT. PT CURRENTLY SLEEPING IN NO DISTRESS. CALL LIGHT IN REACH.
[2020-12-14 05:14] LABS: Bun/Creatinine Ratio 25.6 (12.0-20.0); Calcium, Blood 8.5 mg/dL (8.5-10.1); Creatinine, Blood 0.94 mg/dL (0.40-1.00); Potassium, Blood 3.8 mmol/L (3.5-5.5)
--- NOTE | 2020-12-14 17:43 | NUR ---
SHIFT SUMMARY PT AAOX4, ABLE TO MAKE NEEDS KNOWN, PLEASANT AND COOPERATIVE TO CARE. NO C/O PAIN OR ANY DISCOMFORT THIS SHIFT. NO C/O CP, SOB, OR N&V. PT HAD EPISODES OF AFIB WITH HR OF 120's-130's, DR. ESTEVEZ NOTIFIED VIA PHONE CALL, T.O NOTED. MANAGED BY IV LOPRESSOR AND PO ARLINEZEM. PT AT AFIB 105 BPM AT THIS TIME. PT DENIES ANY PAIN OR ANY DISCOMFORT. PT RESTING COMFORTABLY AT THIS TIME. BED AT LOWEST POSITION. CALL LIGHT WITHIN REACH.
[2020-12-15 02:46] LABS: Source, Urine Catheter
[2020-12-15 02:48] LABS: Bilirubin, Urine Neg (Neg); Blood, Urine 2+ (Neg); Glucose Qualitative, Urine Neg (Neg); Ketones, Urine Neg (Neg); Leukocyte Esterase, Urine 3+ (Neg); Nitrite, Urine Pos (Neg); Protein, Urine 2+ (Neg); Urobilinogen, Urine NORM (Normal)
[2020-12-15 03:06] LABS: Amorphous Mod (0-Heavy); Appearance, Urine Cloudy (Clear); Bacteria Mod /hpf; Color, Urine Yellow (P-Yellow); Red Blood Cells, Urine 0-2 /hpf (0-2); Squamous Epithelial Cells Mod /hpf (Few)
--- NOTE | 2020-12-15 04:41 | NUR ---
SUMMARY NO CHANGES NOTED. PT MENA REPLACED DUE TO INCREASED LEAKING. PROBLEM RESOLVED. PT HAS NOT HAS ANY ISSUE WITH HEART RATE THIS SHIFT. PT SLEPT T/O SHIFT. PT CURRENTLY SLEEPING AND BREATHING EASY. CALL LIGHT IN REACH.
[2020-12-15 07:43] LABS: BASOPHILS ABSOLUTE AUTO 0.03 K/mm3 (0.00-0.23); BASOPHILS PERCENT AUTO 0 % (0-2); EOSINOPHILS ABSOLUTE AUTO 0.18 K/mm3 (0.00-0.68); EOSINOPHILS PERCENT AUTO 2 % (0-6); Hematocrit 32.7 % (33.0-51.0); Hemoglobin 9.9 g/dL (11.5-16.0); IMMATURE GRAN ABSOLUTE AUTO 0.05 K/mm3 (0.00-0.10); IMMATURE GRAN PERCENT AUTO 1 % (0-1); LYMPHOCYTES ABSOLUTE AUTO 0.72 K/mm3 (0.84-5.20); LYMPHOCYTES PERCENT AUTO 8 % (21-46); MONOCYTES ABSOLUTE AUTO 1.08 K/mm3 (0.16-1.47); MONOCYTES PERCENT AUTO 13 % (4-13); Mean Corpuscular HGB 26.8 pg (26.0-34.0); Mean Corpuscular HGB Conc 30.3 g/dL (31.5-36.5); Mean Corpuscular Volume 88 fL (80-100); Mean Platelet Volume 10.2 fL (9.1-12.4); NEUTROPHILS ABSOLUTE AUTO 6.47 K/mm3 (1.96-9.15); NEUTROPHILS PERCENT AUTO 76 % (41-73); Platelet Count 208 K/mm3 (150-400); RDW Coefficient Variation 14.4 % (11.7-14.2); RDW Standard Deviation 46.1 fL (35.1-46.3); White Blood Cell Count 8.53 K/mm3 (4.00-11.30)
[2020-12-15 08:05] LABS: Alanine Aminotransfer (ALT/SGP 16 U/L (12-78); Albumin, Blood 2.8 g/dL (3.4-5.0); Alk Phos 87 U/L (50-136); Anion Gap 1 mmol/L (6-16); Aspartate Aminotrans (AST/SGOT 16 U/L (12-37); Bilirubin, Total 0.8 mg/dL (0.1-1.0); Blood Urea Nitrogen 22 mg/dL (8-24); Bun/Creatinine Ratio 27.4 (12.0-20.0); CO2, Blood 36 mmol/L (21-32); Calcium, Blood 8.5 mg/dL (8.5-10.1); Chloride, Blood 102 mmol/L (98-108); Globulin, Blood 2.8 g/dL (2.2-4.0); Glomerular Filtration Rate >60 (60-); Glucose, Blood 106 mg/dL (70-99); Potassium, Blood 3.5 mmol/L (3.5-5.5); Sodium, Blood 139 mmol/L (136-145); Total Protein, Blood 5.6 g/dL (6.4-8.2)
--- NOTE | 2020-12-15 18:00 | NUR ---
SHIFT SUMMARY PT AAOX3, ABLE TO MAKE NEEDS KNOWN, PLEASANT AND COOPERATIVE TO CARE. NO C/O PAIN OR ANY DISCOMFORT THIS SHIFT. NO C/O CP, SOB OR N&V. PT ON 3LPM O2 VIA NC, SATS >92%. PT HAD EPISODE OF AFIB WITH HR 120-130's. MANAGED WITH PRN PO CARDIZEM ORDERED, PT's HR T/O SHIFT AT AFIB [address] ESTEVEZ, NO FURTHER ORDERS NOTED. MENA CATH PATENT AND DRAINING TO GRAVITY. PT RESTING IN BED AT THIS TIME. BED AT LOWEST POSITION. CALL LIGHT WITHIN REACH.
--- NOTE | 2020-12-16 04:43 | NUR ---
SUMMARY NO NEW ISSUES NOTED THIS SHIFT. PT HAS BEEN SLEEPING T/O SHIFT. PT CURRENTLY SLEEPING IN NO DISTRESS. CALL LIGHT IN REACH.
[2020-12-16 04:44] LABS: BASOPHILS ABSOLUTE AUTO 0.02 K/mm3 (0.00-0.23); BASOPHILS PERCENT AUTO 0 % (0-2); EOSINOPHILS ABSOLUTE AUTO 0.12 K/mm3 (0.00-0.68); EOSINOPHILS PERCENT AUTO 2 % (0-6); Hematocrit 31.4 % (33.0-51.0); Hemoglobin 9.6 g/dL (11.5-16.0); IMMATURE GRAN ABSOLUTE AUTO 0.03 K/mm3 (0.00-0.10); IMMATURE GRAN PERCENT AUTO 0 % (0-1); LYMPHOCYTES ABSOLUTE AUTO 0.65 K/mm3 (0.84-5.20); LYMPHOCYTES PERCENT AUTO 9 % (21-46); MONOCYTES ABSOLUTE AUTO 0.98 K/mm3 (0.16-1.47); MONOCYTES PERCENT AUTO 13 % (4-13); Mean Corpuscular HGB 26.7 pg (26.0-34.0); Mean Corpuscular HGB Conc 30.6 g/dL (31.5-36.5); Mean Corpuscular Volume 88 fL (80-100); Mean Platelet Volume 9.8 fL (9.1-12.4); NEUTROPHILS ABSOLUTE AUTO 5.73 K/mm3 (1.96-9.15); NEUTROPHILS PERCENT AUTO 76 % (41-73); Platelet Count 201 K/mm3 (150-400); RDW Coefficient Variation 14.4 % (11.7-14.2); RDW Standard Deviation 45.4 fL (35.1-46.3); Red Blood Cell Count 3.59 M/mm3 (3.80-5.20); White Blood Cell Count 7.53 K/mm3 (4.00-11.30)
[2020-12-16 05:13] LABS: Alanine Aminotransfer (ALT/SGP 15 U/L (12-78); Albumin, Blood 2.6 g/dL (3.4-5.0); Albumin/Globulin Ratio 0.9 (0.8-1.8); Alk Phos 91 U/L (50-136); Anion Gap 3 mmol/L (6-16); Aspartate Aminotrans (AST/SGOT 10 U/L (12-37); Bilirubin, Total 0.6 mg/dL (0.1-1.0); Blood Urea Nitrogen 20 mg/dL (8-24); Bun/Creatinine Ratio 24.1 (12.0-20.0); CO2, Blood 35 mmol/L (21-32); Calcium, Blood 8.7 mg/dL (8.5-10.1); Chloride, Blood 101 mmol/L (98-108); Creatinine, Blood 0.83 mg/dL (0.40-1.00); Globulin, Blood 2.9 g/dL (2.2-4.0); Glomerular Filtration Rate >60 (60-); Glucose, Blood 103 mg/dL (70-99); Potassium, Blood 3.9 mmol/L (3.5-5.5); Sodium, Blood 139 mmol/L (136-145); Total Protein, Blood 5.5 g/dL (6.4-8.2)
--- NOTE | 2020-12-16 06:27 | NUR ---
0600 PT HAD REPORTED RATE OF 120'S. PT GIVEN CARDIZEM. PT RATE IS REDUCING. TM.
--- NOTE | 2020-12-16 16:57 | NUR ---
SHIFT SUMMARY PT ON COMFORT CARE MEASURES. PT AAOX4, ABLE TO MAKE NEEDS KNOWN, PLEASANT AND COOPERATIVE TO CARE. PT REQUIRES SBA TO BSC. NO C/O PAIN OR ANY DISCOMFORT THIS SHIFT. PT CONTINUES ON 3LPM O2 VIA NC, SOB W/ EXERTION NOTED. MENA CATH PATENT AND DRAINING TO GRAVITY. PT CALM AND COMFORTABLE IN BED T/O SHIFT. BED AT LOWEST POSITION. CALL LIGHT WITHIN REACH.
--- NOTE | 2020-12-16 17:27 | NUR ---
Update 12/16/20: Dr. Fernández and palliative care have discussed the option of hospice with pt. She is agreeable to hospice services through [facility]. [facility] will begin the intake process. Pt. advised that [facility] will work her in for admission on Wednesday12/19/20. If pt. remains stable she will be appropriate for discharge tomorrow. She would like to go home if possible tomorrow evening. Her grandson was present in the room during conversation. He will provide transportation in the early evening tomorrow if appropriate. Pt. states that she feels comfortable going home. I advised her that palliative care has recommended same day admission to hospice. She states her understanding, but states that she does feel that if her breathing is stable tomorrow evening, she would like to go home. Dr. Fernández agreeable to this. Will check-in with pt. again tomorrow morning.
--- NOTE | 2020-12-16 18:03 | NUR ---
Mutliple visits today. Pt is A&O and reports significant dyspnea with exertion. Dr Fernández in prior to my visit and discussed goals of care including considerint hospice. This RN offered therapeutic listening and answered questions. Educated on hospice philosophy with V/U made by Pt. Listened as Pt reports wanting to focus on comfort at home and wishes to avoid future hospitalizations. Pt's grandson Jm into visit with Pt and wishes relayed to Jm. Answered questions and listened to concerns. Jm expresses concerns regarding Pt potentialy needing help at home. Discussed considering looking at Pt's finances to determine if she can affort to hire a caregiver. Pt is on a limited income and has a reverse morgage and is unsure if she would qualify for APD. Continued therapeutic listening. Pt is requesting a same day admission to hospice services upon D/C from the hospital. Discussed comfort care during her hospital stay and educated on comfort care philosophy. Pt is agreeable to start comfort care. Spoke with Kayley prasad in the day and relayed Pt's wishes for [facility]. Pt may benefit from same day admission services for hospice. She would benefit from education regarding medication administration. Pt would benefit from hospital bed, bedside commode, and a FWW that hospice can provide. Pt may also benefit from resources to assist with caregiving. Spoke with Dr Fernández. Placed comfort care order, comfort care order set, D/C maintenance medication per V/O from Dr Fernández. Continued cardiac medications and Lasix for comfort. Palliative Care will remain available for symptom management and supportive visits.
--- NOTE | 2020-12-16 21:55 | NUR ---
2042 PT LYING IN BED, DENIES ANY DISCOMFORT AT THIS TIME. RAJESH HAS YELLOW CLOUDY URINE. NO APPARENT SIGNS OF DISTRESS. CALL LIGHT IS IN REACH.
--- NOTE | 2020-12-17 00:39 | NUR ---
12/16/20 2336 PT LYING IN BED, REPOSITIONED HER IN BED, GOT NEW BATTERIES FOR HER FAN. PT'S HR WAS 139, GAVE CARDIZEM, WILL EVAL FOR EFFECT. NO OTHER APPARENT SIGNS OF DISTRESS. CALL LIGHT IS IN REACH.
--- NOTE | 2020-12-17 06:35 | NUR ---
0200 PT LYING IN BED, EYES CLOSED, APPEARS TO BE RESTING. BREATHING IS EVEN, UNLABORED, NO APPARENT SIGNS OF DISTRESS. PT DOES TALK IN HER SLEEP QUITE A BIT. CALL LIGHT IS IN REACH. 0400 PT LYING IN BED, EYES CLOSED, APPEARS TO BE RESTING. BREATHING IS EVEN, UNLABORED. NO APPARENT SIGNS OF DISTRESS. CALL LIGHT IS IN REACH.
--- NOTE | 2020-12-17 06:37 | NUR ---
PT LYING IN BED, EYES CLOSED, APPEARS TO BE RESTING. BREATHING IS EVEN, UNLABORED. NO APPARENT SIGNS OF DISTRESS. CALL LIGHT IS IN REACH. NO OTHER CHANGES THIS SHIFT.
--- NOTE | 2020-12-17 06:37 | NUR ---
PT IS AAO X 4, ON 3L NC. MENA IS YELLOW, CLOUDY. PT DENIED ANY DISCOMFORT FOR THIS SHIFT.
[2020-12-17] MEDS ORDERED: LORA1 PO (14:37)
[2020-12-17] MEDS ORDERED: MORP20L SL (14:40)
[2020-12-17] MEDS ORDERED: ONDA4ODT MM (14:41)
--- NOTE | 2020-12-17 17:14 | NUR ---
Update 12/17/20 - Pt. discharging on hospice care with [facility]. [facility] to provide transportation. Please see previous notes for additional details.
--- NOTE | 2020-12-17 18:14 | NUR ---
PT DISCHARGED FROM THE UNIT, HOSPICE WILL SEE PT TOMORROW. PT LEFT UNIT VIA WHEELCHAIR. GRANDSON TO DRIVE HOME. DISCHARGE INSTRUCTIONS REVIEWED. IV REMOVED. MENA LEFT IN PLACE. MEDICATIONS FAXED TO PHARMACY.
== END 2020-12-17 17:46 | disposition hospice, home (50) | DRG 291 ==
LOC: ER 15:34 → PCU 20:38 → MEDS 12-13 18:00
PROVIDERS: Emergency Medicine; Family Medicine; Internal Medicine; ADMIT Internal Medicine
DX: I13.0 Hypertensive heart and chronic kidney disease with heart failure and stage 1 through stage 4 chronic kidney disease, or unspecified chronic kidney disease (principal); I50.23 Acute on chronic systolic (congestive) heart failure; J96.21 Acute and chronic respiratory failure with hypoxia; N39.0 Urinary tract infection, site not specified; Z66 Do not resuscitate; Z51.5 Encounter for palliative care; N18.30 Chronic kidney disease, stage 3 unspecified; J44.9 Chronic obstructive pulmonary disease, unspecified; S80.02XA Contusion of left knee, initial encounter; I35.0 Nonrheumatic aortic (valve) stenosis; I48.91 Unspecified atrial fibrillation; R73.03 Prediabetes; I25.10 Atherosclerotic heart disease of native coronary artery without angina pectoris; D63.1 Anemia in chronic kidney disease; Z99.81 Dependence on supplemental oxygen; Z98.890 Other specified postprocedural states; Z90.49 Acquired absence of other specified parts of digestive tract; Z95.5 Presence of coronary angioplasty implant and graft; Z90.710 Acquired absence of both cervix and uterus; Z79.02 Long term (current) use of antithrombotics/antiplatelets; Z79.899 Other long term (current) drug therapy; W18.30XA Fall on same level, unspecified, initial encounter
CPT/HCPCS: 36415; 51703; 71045; 73562-LT; 80048; 80053; 81001; 82550; 83880; 84484; 85025; 87077; 87086; 87186; 93005; 93010; 94640; 94664; 94760; 94762; 96374; 96375; 99285-25; A9270; J0696; J1940; J2930; J3480; J7030; J7050